=== PATIENT | female | born 1930 | race Caucasian/White ===

== ENCOUNTER 2017-02-09 18:59 | Observation (INO) ==
--- OUTSIDE RECORDS SUMMARY | 2017-02-09 19:21 | External Medical Summary | Referral Summary ---
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 Discharge Diagnosis: Syncope Discharge Diagnosis: Sinus node dysfunction Discharge Disposition: 01-Home or Self Care Attending Physician: Indiana Walker MD Admitting Physician: Indiana Walker MD Vital Signs Most recent to oldest [Reference Range]: 1 Peripheral Pulse Rate [60-100 bpm] 72 bpm (12/20/14 3:13 PM) Blood Pressure [90-140/60-90 mmHg] 170/86 mmHg *HI* (12/20/14 3:13 PM) Problem List Condition Effective Dates Status Health Status Informant Allergies(Confirmed) Active Hay fever(Confirmed) Active Benign essential hypertension Active (disorder)(Confirmed) Overactive bladder(Confirmed) Active Bladder problem(Confirmed) Active Presence of permanent cardiac Active pacemaker(Confirmed) Other atopic dermatitis and related Active conditions(Confirmed) Stress incontinence(Confirmed) Active High cholesterol(Confirmed) Active Ear infection(Confirmed) Active Insomnia(Confirmed) Active Irregular heartbeat(Confirmed) Resolved Metabolic syndrome(Confirmed) Active Overweight(Confirmed) Active Atrial fibrillation Active (disorder)(Confirmed) Atrial fibrillation(Confirmed) Resolved Pure hypercholesterolemia Active (disorder)(Confirmed) Orthostatic hypotension dysautonomic Active syndrome(Confirmed) Sinus node dysfunction(Confirmed) Active Sinus infection(Confirmed) Active Tension headache(Confirmed) Active Gait instability(Confirmed) Active Urge incontinence(Confirmed) Active Chicken pox(Confirmed) Active Allergies, Adverse Reactions, Alerts Substance Reaction Severity Status lisinopril Cough Active Medications albuterol 90 mcg/inh inhalation powder 1 puffs, Inhalation, q4hr, Cough, 0 Refill(s) Start Date: 06/06/15 Status: OrderedguaiFENesin 600 mg oral tablet, extended release 600 mg 1 tabs, Oral, Daily, prn cough, 0 Refill(s) Start Date: 06/06/15 Status: Orderedlevothyroxine 88 mcg (0.088 mg) oral tablet See Instructions, TAKE ONE TABLET BY MOUTH DAILY - LAST REFILL UNTIL SEEN., # 30 tabs, 9 Refill(s), eRx: [facility] #[id number], TAKE ONE TABLET BY MOUTH DAILY - LAST REFILL UNTIL SEEN. Start Date: 03/27/15 Status: Orderedmidodrine 5 mg oral tablet 5 mg 1 tabs, Oral, TID, 0 Refill(s) Start Date: 06/06/15 Status: OrderedMiscellaneous DME DME Item FRONT WHEELED WALKER WITH SEAT AND HAND BRAKES FOR GAIT INSTABILITY, See Instructions, # 1 Each, 0 Refill(s), Supply Start Date: 06/11/15 Status: Orderednitroglycerin 0.4 mg sublingual tablet 0.4 mg 1 tabs, SubLingual, q5min, as needed for chest pain, # 100 tabs, 0 Refill (s) Start Date: 10/17/14 Status: Orderedsotalol 80 mg oral tablet 1/2 tabs, Oral, BID, # 30 tabs, 5 Refill(s), other reason (Rx), 1 tabs Oral BID Start Date: 06/19/15 Status: OrderedVitamin D3 0 Refill(s) Start Date: 06/03/15 Status: Orderedwarfarin 2 mg oral tablet See Instructions, TAKE ONE TABLET BY MOUTH EVERY DAY, # 30 tabs, 3 Refill(s), Pharmacy: [facility] #[id number], TAKE ONE TABLET BY MOUTH EVERY DAY Start Date: 04/01/15 Status: Ordered Results No data available for this section Immunizations Vaccine Date Refusal Reason influenza virus vaccine, inactivated 02/27/15 influenza virus vaccine, live 02/22/13 influenza virus vaccine, live 02/22/12 pneumococcal 13-valent conjugate vaccine 06/29/14 pneumococcal 23-polyvalent vaccine 03/09/05 tetanus/diphtheria/pertussis, acel(Tdap) 12/26/12 Procedures Procedure Date Related Diagnosis Body Site Mammogram 07/06/14 Bone densimetry normal 08/24/13 Lumpectomy and Radiation 11/2006 Colonoscopy 01/15/05 Cataract extraction Pacemaker Tonsillectomy Social History Social History Type Response Smoking Status Never smoker Assessment and Plan Extracted from: Title: Office Visit Note Author: Indiana Walker MD Date: 12/20/14 Assessment/Plan Atrial fibrillation Ordered: Office Visit Level 3 Est 31487 Pm Device Progr Eval Dual [id number] Return to Clinic Orthostasis Presence of permanent cardiac pacemaker Ordered: Office Visit Level 3 Est 54688 Pm Device Progr Eval Dual [id number] Return to Clinic Sinus node dysfunction Syncope Dictation performed with [email or web address] voice recognition Referrals to Other Providers Referred by: Indiana Walker MD
--- OUTSIDE RECORDS SUMMARY | 2017-02-09 19:21 | External Medical Summary | Referral Summary ---
:1930 Author Organization [facility] Address [address] [place] [address] Care Team Providers Name Role Phone Luisa Thornton Primary Care Physician Encounter [facility] Date(s): 10/11/14 - 10/11/14 [facility] [address] [place] [address]- [place] Discharge Diagnosis: Sinus node dysfunction Discharge Diagnosis: LV dysfunction Discharge Diagnosis: Non-sustained ventricular tachycardia Discharge Diagnosis: Hx of amiodarone therapy Discharge Diagnosis: Presence of permanent cardiac pacemaker Discharge Diagnosis: Benign essential hypertension Discharge Diagnosis: Atrial fibrillation Discharge Disposition: 01-Home or Self Care Attending Physician: Indiana Walker MD Admitting Physician: Indiana Walker MD Referring Physician: Ca Akins MD Vital Signs Most recent to oldest [Reference Range]: 1 Peripheral Pulse Rate [60-100 bpm] 80 bpm (10/11/14 4:16 PM) Blood Pressure [90-140/60-90 mmHg] 132/76 mmHg (10/11/14 4:16 PM) Problem List Condition Effective Dates Status [...] Reaction Severity Status lisinopril Cough Active Medications levothyroxine 88 mcg (0.088 mg) oral tablet See Instructions, TAKE ONE TABLET BY MOUTH DAILY - LAST REFILL UNTIL SEEN., # 30 tabs, eRx: [facility] #[id number], TAKE ONE TABLET BY MOUTH DAILY - LAST REFILL UNTIL SEEN. Start Date: 02/25/15 Status: Orderedlevothyroxine 88 mcg (0.088 mg) oral tablet 88 mcg 1 tabs, Oral, Daily, last refill until seen you will need to set up appointment with a new doc. or Dr. Thornton, # 30 tabs, 0 Refill(s), Pharmacy: [facility] #[id number], 1 tabs Oral Daily,Instr:last refill until seen; you will need to set up ap... Start Date: 01/22/15 Status: Orderedmidodrine 5 mg oral tablet See Instructions, 2 tab oral in am and 1 tab at noon, # 90 tabs, 5 Refill(s), Pharmacy: [facility] #[id number], 2 tab oral in am and 1 tab at noon Start Date: 03/15/15 Status: OrderedMultaq 400 mg oral tablet 400 mg 1 tabs, Oral, BID, # 60 tabs, 3 Refill(s), Pharmacy: [facility] # [id number], 1 tabs Oral BID Start Date: 02/27/15 Status: Orderednitroglycerin 0.4 mg sublingual tablet 0.4 mg 1 tabs, SubLingual, q5min, as needed for chest pain, # 100 tabs, 0 Refill (s) Start Date: 10/17/14 Status: Orderedwarfarin 2 mg oral tablet See Instructions, TAKE ONE TABLET BY MOUTH EVERY DAY, # 30 tabs, 3 Refill(s), eRx: [facility] #[id number], TAKE ONE TABLET BY MOUTH EVERY DAY Start Date: 11/19/14 Status: Ordered Results No data available for this section Immunizations Vaccine Date Refusal Reason influenza virus vaccine, inactivated 02/27/15 influenza virus vaccine, live 02/22/13 influenza virus vaccine, live 02/22/12 pneumococcal 13-valent conjugate vaccine 06/29/14 pneumococcal 23-polyvalent vaccine 03/09/05 tetanus/diphtheria/pertussis, acel(Tdap) 12/26/12 Procedures Procedure Date Related Diagnosis Body Site Lumpectomy and Radiation 11/2006 Cataract extraction Colonoscopy Pacemaker Tonsillectomy Social History Social History Type Response Smoking Status Never smoker Assessment and Plan Extracted from: Title: Office Visit Note Author: Indiana Walker MD Date: 10/11/14 Assessment/Plan Atrial fibrillation Ordered: Office Visit Level 4 Est 57094 Pm Device Progr Eval Dual [id number] Return to Clinic Benign essential hypertension Hx of amiodarone therapy LV dysfunction Non-sustained ventricular tachycardia Presence of permanent cardiac pacemaker Ordered: Office Visit Level 4 Est 07714 Pm Device Progr Eval Dual [id number] Return to Clinic Sinus node dysfunction Ordered: Office Visit Level 4 Est 80858 Pm Device Progr Eval Dual [id number] Return to Clinic Dictation performed with [employer] voice recognition Referrals to Other Providers Referred by: Indiana Walker MD
[2017-02-09] MEDS ORDERED: SALINE FLUSH 10ml SYRINGE IVF PRN (19:22)
--- OUTSIDE RECORDS SUMMARY | 2017-02-09 19:22 | External Medical Summary | Referral Summary ---
:1930 Author Care Team Providers Name Role Phone PamelaCa puentes Primary Care Physician Encounter [facility] [id number] Date(s): 08/30/14 - 08/30/14 [facility], [address] [place] [id number] [place] Discharge Diagnosis: Dizziness Discharge Diagnosis: Benign essential hypertension Discharge Diagnosis: ATRIAL FIBRILLATION Discharge Diagnosis: Shortness of breath Discharge Disposition: Home or Self Care Attending Physician: Deisy Sanchez APRN Admitting Physician: Deisy Sanchez APRN Vital Signs Most recent to oldest [Reference Range]: 1 Temperature Tympanic [36.6-38.1 degC] 36.4 degC *LOW* (08/30/14 3:13 PM) Peripheral Pulse Rate [60-100 bpm] 75 bpm (08/30/14 3:13 PM) Blood Pressure [90-140/60-90 mmHg] 110/60 mmHg (08/30/14 3:13 PM) Most recent to oldest [Reference Range]: 1 SpO2 95 % (08/30/14 3:13 PM) Problem List Condition Effective Dates Status Health Status Informant Allergies(Confirmed) Active Hay fever(Confirmed) Active Atrial fibrillation Active (disorder)(Confirmed) Atrial fibrillation(Confirmed) Resolved Benign essential hypertension Active (disorder)(Confirmed) Overactive bladder(Confirmed) Active Bladder problem(Confirmed) Active Presence of permanent cardiac Active pacemaker(Confirmed) Other atopic dermatitis and related Active conditions(Confirmed) Stress incontinence(Confirmed) Active High cholesterol(Confirmed) Active Ear infection(Confirmed) Active Irregular heartbeat(Confirmed) Resolved Metabolic syndrome(Confirmed) Active Overweight(Confirmed) Active Pure hypercholesterolemia Active (disorder)(Confirmed) Sinus node dysfunction(Confirmed) Active Sinus infection(Confirmed) Active Tension headache(Confirmed) Active Urge incontinence(Confirmed) Active Chicken pox(Confirmed) Active Allergies, Adverse Reactions, Alerts Substance Reaction Severity Status lisinopril Cough Active Medications amiodarone 200 mg oral tablet See Instructions, TAKE 1.5 MG BY MOUTH 3 DAYS A WEEK AND 1 TABLET 4 DAYS A WEEK , # 45 tabs, 5 Refill(s), eRx: [facility] #[id number], TAKE 1.5 MG BY MOUTH 3 DAYS A WEEK AND 1 TABLET 4 DAYS A WEEK Special Instructions: TAKE 1.5 MG BY MOUTH 3 DAYS A WEEK AND 1 TABLET 4 DAYS A WEEK Start Date: 01/09/14 Status: Orderedlevothyroxine 88 mcg (0.088 mg) oral tablet See Instructions, TAKE ONE TABLET BY MOUTH ONCE A DAY, # 60 tabs, 3 Refill(s), eRx: [facility]#[id number], TAKE ONE TABLET BY MOUTH ONCE A DAY Special Instructions: TAKE ONE TABLET BY MOUTH ONCE A DAY Start Date: 02/19/14 Status: Orderedmeloxicam 7.5 mg oral tablet 2 tabs, Oral, Daily, as needed, 0 Refill(s) Special Instructions: as needed Start Date: 10/27/13 Status: Orderedverapamil 120 mg oral tablet See Instructions, TAKE ONE TABLET BY MOUTH TWICE A DAY, # 60 tabs, 2 Refill(s), eRx: [facility] #[id number], TAKE ONE TABLET BY MOUTH TWICE A DAY Special Instructions: TAKE ONE TABLET BY MOUTH TWICE A DAY Start Date: 06/20/14 Status: Orderedwarfarin 2 mg oral tablet See Instructions, TAKE ONE TABLET BY MOUTH EVERY DAY, # 30 tabs, 2 Refill(s), eRx: [facility] #[id number], TAKE ONE TABLET BY MOUTH EVERY DAY Special Instructions: TAKE ONE TABLET BY MOUTH EVERY DAY Start Date: 08/15/14 Status: Ordered Results Hematology Most recent to oldest [Reference Range]: 1 WBC [4.8-10.8 K/uL] 4.3 K/uL *LOW* (08/30/14 4:10 PM) RBC [4.00-5.20 M/uL] 4.02 M/uL (08/30/14 4:10 PM) Hgb [12.0-16.0 gm/dL] 12.8 gm/dL (08/30/14 4:10 PM) Hct [37.0-47.0 %] 38.7 % (08/30/14 4:10 PM) MCV [82.0-99.0 fL] 96.3 fL (08/30/14 4:10 PM) MCH [27.0-32.0 pg] 31.8 pg (08/30/14 4:10 PM) MCHC [32.0-36.0 gm/dL] 33.1 gm/dL (08/30/14 4:10 PM) RDW [11.5-14.5 %] 15.5 % *HI* (08/30/14 4:10 PM) Platelet [150-400 K/uL] 180 K/uL (08/30/14 4:10 PM) MPV [8.8-14.8 fL] 11.4 fL (08/30/14 4:10 PM) Immature Granulocytes [0.0-1.0 %] 0.2 % (08/30/14 4:10 PM) Neutrophils [51-75 %] 66 % (08/30/14 4:10 PM) Lymphocytes [20-46 %] 18 % *LOW* (08/30/14 4:10 PM) Monocytes [4-11 %] 13 % *HI* (08/30/14 4:10 PM) Eosinophils [0-4 %] 2 % (08/30/14 4:10 PM) Basophils [0-2 %] 1 % (08/30/14 4:10 PM) Neutro Absolute [1.90-7.00 THOUS] 2.85 THOUS (08/30/14 4:10 PM) Lymph Absolute [0.80-3.30 THOUS] 0.77 THOUS *LOW* (08/30/14 4:10 PM) [place] Absolute [0.30-1.00 THOUS] 0.57 THOUS (08/30/14 4:10 PM) Eos Absolute [0.00-0.50 THOUS] 0.08 THOUS (08/30/14 4:10 PM) Baso Absolute [0.00-0.20 THOUS] 0.02 THOUS (08/30/14 4:10 PM) Coagulation Most recent to oldest [Reference Range]: 1 INR [0.8-1.2] 2.2 1 *HI* (08/30/14 4:10 PM) 1Result Comment: Normal (no anticoagulant): 0.8 - 1.2 Units Routine Therapeutic Range: 2.0 - 3.0 Units High Risk Therapeutic Range: 2.5 - 3.5 UnitsChemistry Most recent to oldest [Reference Range]: 1 Sodium Lvl [135-144 mEq/L] 141 mEq/L (08/30/14 4:10 PM) Potassium Lvl [3.5-5.2 mEq/L] 4.7 mEq/L (08/30/14 4:10 PM) Chloride [99-111 mEq/L] 107 mEq/L (08/30/14 4:10 PM) CO2 [22-31 mEq/L] 27 mEq/L (08/30/14 4:10 PM) AGAP [3-20] 7 (08/30/14 4:10 PM) BUN [10-20 mg/dL] 40 mg/dL *HI* (08/30/14 4:10 PM) Glucose Lvl [70-99 mg/dL] 104 mg/dL *HI* (08/30/14 4:10 PM) Creatinine Lvl [0.57-1.11 mg/dL] 1.83 mg/dL *HI* (08/30/14 4:10 PM) eGFR [>60 mL/min] 26 mL/min 2 *ABN* (08/30/14 4:10 PM) Calcium Lvl [8.9-10.5 mg/dL] 9.3 mg/dL (08/30/14 4:10 PM) Albumin Lvl [3.4-4.8 gm/dL] 4.1 gm/dL (08/30/14 4:10 PM) Total Protein [6.2-8.1 gm/dL] 6.6 gm/dL (08/30/14 4:10 PM) Globulin [1.8-4.0 gm/dL] 2.5 gm/dL (08/30/14 4:10 PM) ALT [0-55 unit/L] 14 unit/L (08/30/14 4:10 PM) AST [5-34 unit/L] 15 unit/L (08/30/14 4:10 PM) Alk Phos [40-150 unit/L] 92 unit/L (08/30/14 4:10 PM) Bili Total [0.2-1.2 mg/dL] 0.4 mg/dL (08/30/14 4:10 PM) BNP [0-99 pg/mL] 270 pg/mL *HI* (08/30/14 4:10 PM) 2Result Comment: Multiply eGFR results by 1.21 for race. Immunizations Vaccine Date Refusal Reason influenza virus vaccine, live 02/22/13 influenza virus vaccine, live 02/22/12 pneumococcal 13-valent conjugate vaccine 06/29/14 pneumococcal 23-polyvalent vaccine 03/09/05 tetanus/diphtheria/pertussis, acel(Tdap) 12/26/12 Procedures Procedure Date Related Diagnosis Body Site Lumpectomy and Radiation 11/2006 Cataract extraction Colonoscopy Pacemaker Tonsillectomy Social History Social History Type Response Smoking Status Never smoker Assessment and Plan Extracted from: Title: Ambulatory Patient Education Author: Deisy Sanchez APRN Date: Allergy Shortness of Breath Shortness of breath means you have trouble breathing. Shortness of breath needs medical care right away. HOME CARE Do not smoke. Avoid being around chemicals or things (paint fumes, dust) that may bother your breathing. Rest as needed. Slowly begin your normal activities. Only take medicines as told by your doctor. Keep all doctor visits as told. GET HELP RIGHT AWAY IF: Your shortness of breath gets worse. You feel lightheaded, pass out (faint ), or have a cough that is not helped by medicine. You cough up blood. You have pain with breathing. You have pain in your chest, arms, shoulders, or belly (abdomen ). You have a fever. You cannot walk up stairs or exercise the way you normally do. You do not get better in the time expected. You have a hard time doing normal activities even with rest. You have problems with your medicines. You have any new symptoms. MAKE SURE YOU: Understand these instructions. Will watch your condition. Will get help right away if you are not doing well or get worse. Document Released: 10/19/2008 Document Revised: 11/01/2012 Document Reviewed: 07/18/2012 Exit[employer] Patient Information 2014 Daily [place]. No follow up information was provided. Extracted from: Title: Office Visit Note Author: Deisy Sanchez APRN Date: 08/30/14 Assessment/Plan 1.Shortness of breath Will review lab work and imaging and further plan of care. Sa02 did drop 88-89 with ambulation. RA 95% at rest. RTC in 1-2 days to review results. 2.Dizziness ATRIAL FIBRILLATION Ordered: B-Type Natriuretic Peptide CBC w/ Differential Comprehensive Metabolic Panel XR Chest 2 Views Benign essential hypertension Addendum by Deisy Sanchez APRN on 30 August 2014 d-dimer added to lab orders. 16:23:08 CDT
--- OUTSIDE RECORDS SUMMARY | 2017-02-09 19:22 | External Medical Summary | Referral Summary ---
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 Discharge Diagnosis: Atrial fibrillation (disorder) Discharge Disposition: 01-Home or Self Care Attending Physician: Luisa Thornton DO Admitting Physician: Luisa Thornton DO Vital Signs Most recent to oldest [Reference Range]: 1 Temperature Tympanic [36.6-38.1 degC] 36.9 degC (02/27/15 9:07 AM) Peripheral Pulse Rate [60-100 bpm] 93 bpm (02/27/15 9:07 AM) Respiratory Rate [14-20 br/min] 17 br/min (02/27/15 9:07 AM) Blood Pressure [90-140/60-90 mmHg] 120/64 mmHg (02/27/15 9:07 AM) SpO2 97 % (02/27/15 9:07 AM) Problem List Condition Effective Dates Status Health [...] REFILL UNTIL SEEN., # 30 tabs, eRx: [facility] #[id number], TAKE ONE TABLET BY MOUTH DAILY - LAST REFILL UNTIL SEEN. Start Date: 02/25/15 Status: Orderedlevothyroxine 88 mcg (0.088 mg) oral tablet 88 mcg 1 tabs, Oral, Daily, last refill until seen you will need to set up appointment with a new doc. or Dr. Thornton, # 30 tabs, 0 Refill(s), Pharmacy: [facility] #[id number], 1 tabs Oral Daily,Instr:last refill until seen; you will need to set up ap... Start Date: 01/22/15 Status: Orderedmidodrine 10 mg oral tablet See Instructions, 1 tabs Oral in the morning, # 30 mg, 0 Refill(s), Pharmacy: [facility] #[id number], 1 tabs Oral in the morning Start Date: 01/17/15 Status: Orderedmidodrine 5 mg oral tablet See Instructions, 1 tab oral at noon, # 30 tabs, 0 Refill(s), Pharmacy: [facility] #[id number], 1 tab oral at noon Start Date: 02/27/15 Status: OrderedMultaq 400 mg oral tablet 400 mg 1 tabs, Oral, BID, # 60 tabs, 3 Refill(s), Pharmacy: [facility] # [id number], 1 tabs Oral BID Start Date: 02/27/15 Status: Orderednitroglycerin 0.4 mg sublingual tablet 0.4 mg 1 tabs, SubLingual, q5min, as needed for chest pain, # 100 tabs, 0 Refill (s) Start Date: 10/17/14 Status: Orderedwarfarin 2 mg oral tablet See Instructions, TAKE ONE TABLET BY MOUTH EVERY DAY, # 30 tabs, 3 Refill(s), eRx: [facility] #[id number], TAKE ONE TABLET BY MOUTH EVERY DAY Start Date: 11/19/14 Status: Ordered Results Coagulation Most recent to oldest [Reference Range]: 1 PT Venous (02/27/15 10:18 AM) INR [0.8-1.2] 1.9 1 *HI* (02/27/15 10:18 AM) 1Result Comment: Normal (no anticoagulant): 0.8 - 1.2 Units Routine Therapeutic Range: 2.0 - 3.0 Units High Risk Therapeutic Range: 2.5 - 3.5 Units Immunizations Vaccine Date Refusal Reason influenza virus [...] Extracted from: Title: Office Visit Note Author: Luisa Thornton DO Date: 02/27/15 Assessment/Plan Atrial fibrillation (disorder) Discuss with cardiology next month. Ordered: Office Visit Level 4 Est 41385 Gait instability Will get her physical therapy. Ordered: Office Visit Level 4 Est 02957 Immunization due Flu shot today. Insomnia Discussed camomile tea, small dose of melatonin, and small dose of Benadryl if she is extremely cautious with this and only if absolutely necessary. Ordered: Office Visit Level 4 Est 80270 Orthostatic hypotension dysautonomic syndrome Due to side effects, we will decrease Midrin by holding the afternoon dose. Patient will now take 10 in the morning and 5 at lunch time and we will se e how this affects both her orthostasis and night time adverse effects. Patient is to return to clinic in July when the weather gets better, and to call us in about a month with an update on how she is doing. She is to keep appointment with cardiology. Ordered: Office Visit Level 4 Est 32055
--- OUTSIDE RECORDS SUMMARY | 2017-02-09 19:22 | External Medical Summary | Referral Summary ---
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 Discharge Diagnosis: Atrial fibrillation (disorder) Discharge Disposition: 01-Home or Self Care Attending Physician: Luisa Thornton DO Admitting Physician: Luisa Thornton DO Vital Signs Most recent to oldest [Reference Range]: 1 Temperature Tympanic [36.6-38.1 degC] 36.9 degC (01/30/15 10:15 AM) Peripheral Pulse Rate [60-100 bpm] 60 bpm (01/30/15 10:15 AM) Respiratory Rate [14-20 br/min] 17 br/min (01/30/15 10:15 AM) Blood Pressure [90-140/60-90 mmHg] 128/60 mmHg (01/30/15 10:15 AM) SpO2 97 % (01/30/15 10:15 AM) Problem List Condition Effective Dates Status [...] SEEN., # 30 tabs, 9 Refill(s), eRx: [facility] #[id number], TAKE ONE TABLET BY MOUTH DAILY - LAST REFILL UNTIL SEEN. Start Date: 03/27/15 Status: Orderedmidodrine 10 mg oral tablet 10 mg 1 tabs, Oral, TID, # 90 tabs, 0 Refill(s), other reason (Rx) Start Date: 08/05/15 Status: OrderedMiscellaneous DME DME Item FRONT WHEELED [...] DAY, # 30 tabs, 3 Refill(s), Pharmacy: [facility] #[id number], TAKE ONE TABLET BY MOUTH EVERY DAY Start Date: 07/05/15 Status: Ordered Results No data available for [...] Extracted from: Title: Ambulatory Patient Education Author: Luisa Thornton DO Date: 01/30/15 Family Medicine Atrial Fibrillation Atrial fibrillation is a type of irregular heart rhythm (arrhythmia). During atrial fibrillation, the upper chambers of the heart (atria) quiver continuously in a chaotic pattern. This causes an irregular and often rapid heart rate. Atrial fibrillation is the result of the heart becoming overloaded with disorganized signals that tell it to beat. These signals are normally released one at a time by a part of the right atrium called the sinoatrial node. They then travel from the atria to the lower chambers of the heart (ventricles), causing the atria and ventricles to contract and pump blood as they pass. In atrial fibrillation, pa rts of the atria outside of the sinoatrial node also release these signals. This results in two problems. First, the atria receive so many signals that they do not have time to fully contract. Second, t he ventricles, which can only receive one signal at a time, beat irregularly and out of rhythm with the atria. There are three types of atrial fibrillation: Paroxysmal. Paroxysmal atrial fibrillation starts suddenly and stops on its own within a week. Persistent. Persistent atrial fibrillation lasts for more than a week. It may stop on its own or with treatment. Permanent. Permanent atrial fibrillation does not go away. Episodes of atrial fibrillation may lead to permanent atrial fibrillation. Atrial fibrillation can prevent your heart from pumping blood normally. It increases your risk of stroke and can lead to heart failure. CAUSES Heart conditions, including a heart attack, heart failure, coronary artery disease, and heart valve conditions. Inflammation of the sac that surrounds the heart (pericarditis). Blockage of an artery in the lungs (pulmonary embolism). Pneumonia or other infections. Chronic lung disease. Thyroid problems, especially if the thyroid is overactive (hyperthyroidism ). Caffeine, excessive alcohol use, and use of some illegal drugs. Use of some medicines, including certain decongestants and diet pills. Heart surgery. defects. Sometimes, no cause can be found. When this happens, the atrial fibrillation is called lone atrial fibrillation. The risk of complications from atrial fibrillation increases if you have lone atrial fibrillation and you are age 60 years or older. RISK FACTORS Heart failure. Coronary artery disease. Diabetes mellitus. High blood pressure (hypertension). Obesity. Other arrhythmias. Increased age. SIGNS AND SYMPTOMS A feeling that your heart is beating rapidly or irregularly. A feeling of discomfort or pain in your chest. Shortness of breath. Sudden light-headedness or weakness. Getting tired easily when exercising. Urinating more often than normal (mainly when atrial fibrillation first begins). In paroxysmal atrial fibrillation, symptoms may start and suddenly stop. DIAGNOSIS Your health care provider may be able to detect atrial fibrillation when taking your pulse. Your health care provider may have you take a test called an ambulatory electrocardiogram (ECG). An ECG record s your heartbeat patterns over a 24-hour period. You may also have other tests , such as: Transthoracic echocardiogram (TTE). During echocardiography, sound waves are used to evaluate how blood flows through your heart. Transesophageal echocardiogram (DAVID). Stress test. There is more than one type of stress test. If a stress test is needed, ask your health care provider about which type is best for you. Chest X-ray exam. Blood tests. Computed tomography (CT). TREATMENT Treatment may include: Treating any underlying conditions. For example, if you have an overactive thyroid, treating the condition may correct atrial fibrillation. Taking medicine. Medicines may be given to control a rapid heart rate or to prevent blood clots, heart failure, or a stroke. Having a procedure to correct the rhythm of the heart: Electrical cardioversion. During electrical cardioversion, a controlled, low-energy shock is delivered to the heart through your skin. If you have chest pain, very low blood pressure, or sudden hea rt failure, this procedure may need to be done as an emergency. Catheter ablation. During this procedure, heart tissues that send the signals that cause atrial fibrillation are destroyed. Surgical ablation. During this surgery, thin lines of heart tissue that carry the abnormal signals are destroyed. This procedure can either be an open- heart surgery or a minimally invasive surgery. With the minimally invasive surgery, small cuts are made to access the heart instead of a large opening. Pulmonary venous isolation. During this surgery, tissue around the veins that carry blood from the lungs (pulmonary veins) is destroyed. This tissue is thought to carry the abnormal signals. HOME CARE INSTRUCTIONS Take medicines only as directed by your health care provider. Some medicines can make atrial fibrillation worse or recur. If blood thinners were prescribed by your health care provider, take them exactly as directed. Too much blood-thinning medicine can cause bleeding. If you take too little, you will not have the nee ded protection against stroke and other problems. Perform blood tests at home if directed by your health care provider. Perform blood tests exactly as directed. Quit smoking if you smoke. Do not drink alcohol. Do not drink caffeinated beverages such as coffee, soda, and some teas. You may drink decaffeinated coffee, soda, or tea. Maintain a healthy weight.Do not use diet pills unless your health care provider approves. They may make heart problems worse. Follow diet instructions as directed by your health care provider. Exercise regularly as directed by your health care provider. Keep all follow-up visits as directed by your health care provider. This is important. PREVENTION The following substances can cause atrial fibrillation to recur: Caffeinated beverages. Alcohol. Certain medicines, especially those used for breathing problems. Certain herbs and herbal medicines, such as those containing ephedra or ginseng. Illegal drugs, such as cocaine and amphetamines. Sometimes medicines are given to prevent atrial fibrillation from recurring. Proper treatment of any underlying condition is also important in helping prevent recurrence. SEEK MEDICAL CARE IF: You notice a change in the rate, rhythm, or strength of your heartbeat. You suddenly begin urinating more frequently. You tire more easily when exerting yourself or exercising. SEEK IMMEDIATE MEDICAL CARE IF: You have chest pain, abdominal pain, sweating, or weakness. You feel nauseous. You have shortness of breath. You suddenly have swollen feet and ankles. You feel dizzy. Your face or limbs feel numb or weak. You have a change in your vision or speech. MAKE SURE YOU: Understand these instructions. Will watch your condition. Will get help right away if you are not doing well or get worse. Document Released: 05/03/2006 Document Revised: 09/17/2014 Document Reviewed: 06/13/2013 ExitCare Patient Information 2015 [employer]. This information is not intended to replace advice given to you by your health care provider. Make sure you discuss any questions you have with your health care provider. No follow up information was provided. Extracted from: Title: Office Visit Note Author: Luisa Thornton DO Date: 01/30/15 Assessment/Plan Atrial fibrillation (disorder) discuss medication with cardiology. Her heart rate is too low today and her BP continues to be too low for me to restart any medication. Ordered: Office Visit Level 3 Est 43014 Orthostatic hypotension dysautonomic syndrome continue midodrine at current dose, Cardiac rehab if she qualifies. Ordered: Office Visit Level 3 Est 94266
--- OUTSIDE RECORDS SUMMARY | 2017-02-09 19:22 | External Medical Summary | Referral Summary ---
:1930 Author Organization [facility] Address [address] [place] [address] Care Team Providers Name Role Phone Luisa Thornton Primary Care Physician Encounter [facility] Date(s): 10/11/14 - 10/11/14 [facility] [address] [place] [address]- [place] Discharge Diagnosis: Sinus node [...] REFILL UNTIL SEEN., # 30 tabs, eRx: [facility] #[id number], TAKE ONE TABLET BY MOUTH DAILY - LAST REFILL UNTIL SEEN. Start Date: 02/25/15 Status: Orderedlevothyroxine 88 mcg (0.088 mg) oral tablet 88 mcg 1 tabs, Oral, Daily, last refill until seen you will need to set up appointment with a new doc. or Dr. Thornton, # 30 tabs, 0 Refill(s), Pharmacy: [facility] #[id number], 1 tabs Oral Daily,Instr:last refill until seen; you will need to set up ap... Start Date: 01/22/15 Status: Orderedmidodrine 5 mg oral tablet See Instructions, 2 tab oral in am and 1 tab at noon, # 90 tabs, 5 Refill(s), Pharmacy: [facility] #[id number], 2 tab oral in am and 1 tab at noon Start Date: 03/15/15 Status: OrderedMultaq 400 mg oral tablet 400 mg 1 tabs, Oral, BID, # 60 tabs, 3 Refill(s), Pharmacy: [facility] # [id number], 1 tabs Oral BID Start Date: 02/27/15 Status: Orderednitroglycerin 0.4 mg sublingual tablet 0.4 mg 1 tabs, SubLingual, q5min, as needed for chest pain, # 100 tabs, 0 Refill (s) Start Date: 10/17/14 Status: Orderedwarfarin 2 mg oral tablet See Instructions, TAKE ONE TABLET BY MOUTH EVERY DAY, # 30 tabs, 3 Refill(s), eRx: [facility] #[id number], TAKE ONE TABLET BY MOUTH EVERY DAY [...] fibrillation Ordered: Office Visit Level 4 Est 23137 Pm Device Progr Eval Dual 05193 Return to Clinic Benign essential hypertension Hx of amiodarone therapy LV dysfunction Non-sustained ventricular tachycardia Presence of permanent cardiac pacemaker Ordered: Office Visit Level 4 Est 85629 Pm Device Progr Eval Dual 01047 Return to Clinic Sinus node dysfunction Ordered: Office Visit Level 4 Est 16759 Pm Device Progr Eval Dual 32663 Return to Clinic Dictation performed with [employer] voice recognition Referrals to Other Providers Referred by: Indiana Walker MD
--- OUTSIDE RECORDS SUMMARY | 2017-02-09 19:22 | External Medical Summary | Referral Summary ---
:1930 Author Organization [facility] Address [address] [place] [address] Care Team Providers Name Role Phone Luisa Thornton Primary Care Physician Encounter [facility] Date(s): 10/11/14 - 10/11/14 [facility] [address] [place] [address] [place] Discharge Diagnosis: Sinus node [...] REFILL UNTIL SEEN., # 30 tabs, eRx: [facility] #[id number], TAKE ONE TABLET BY MOUTH DAILY - LAST REFILL UNTIL SEEN. Start Date: 02/25/15 Status: Orderedlevothyroxine 88 mcg (0.088 mg) oral tablet 88 mcg 1 tabs, Oral, Daily, last refill until seen you will need to set up appointment with a new doc. or Dr. Thornton, # 30 tabs, 0 Refill(s), Pharmacy: [facility] #[id number], 1 tabs Oral Daily,Instr:last refill until seen; you will need to set up ap... Start Date: 01/22/15 Status: Orderedmidodrine 5 mg oral tablet See Instructions, 2 tab oral in am and 1 tab at noon, # 90 tabs, 5 Refill(s), Pharmacy: [facility] #[id number], 2 tab oral in am and 1 tab at noon Start Date: 03/15/15 Status: OrderedMultaq 400 mg oral tablet 400 mg 1 tabs, Oral, BID, # 60 tabs, 3 Refill(s), Pharmacy: [facility] # [id number], 1 tabs Oral BID Start Date: 02/27/15 Status: Orderednitroglycerin 0.4 mg sublingual tablet 0.4 mg 1 tabs, SubLingual, q5min, as needed for chest pain, # 100 tabs, 0 Refill (s) Start Date: 10/17/14 Status: Orderedwarfarin 2 mg oral tablet See Instructions, TAKE ONE TABLET BY MOUTH EVERY DAY, # 30 tabs, 3 Refill(s), eRx: [facility] #[id number], TAKE ONE TABLET BY MOUTH EVERY DAY [...] fibrillation Ordered: Office Visit Level 4 Est 36994 Pm Device Progr Eval Dual 53780 Return to Clinic Benign essential hypertension Hx of amiodarone therapy LV dysfunction Non-sustained ventricular tachycardia Presence of permanent cardiac pacemaker Ordered: Office Visit Level 4 Est 30120 Pm Device Progr Eval Dual 26165 Return to Clinic Sinus node dysfunction Ordered: Office Visit Level 4 Est 77882 Pm Device Progr Eval Dual 03774 Return to Clinic Dictation performed with [employer] voice recognition Referrals to Other Providers Referred by: Indiana Walker MD
--- OUTSIDE RECORDS SUMMARY | 2017-02-09 19:22 | External Medical Summary | Referral Summary ---
:1930 Author Organization [facility] Address [address] [place] [address] Care Team Providers Name Role Phone Luisa Thornton Primary Care Physician Encounter [facility] [id number] Date(s): 11/15/14 - 11/15/14 [facility] [address] [place] [address] [place] Discharge Diagnosis: Presence of permanent cardiac pacemaker Discharge Diagnosis: Atrial fibrillation Discharge Diagnosis: Sinus node dysfunction Discharge Diagnosis: Left ventricular dysfunction Discharge Disposition: 01-Home or Self Care Attending Physician: Indiana Walker MD Admitting Physician: Indiana Walker MD Referring Physician: Ca Akins MD Vital Signs Most recent to oldest [Reference Range]: 1 Peripheral Pulse Rate [60-100 bpm] 80 bpm (11/15/14 12:38 PM) Blood Pressure [90-140/60-90 mmHg] 146/88 mmHg *HI* (11/15/14 12:38 PM) Problem List Condition Effective Dates Status [...] SEEN., # 30 tabs, 9 Refill(s), eRx: [facility] #[id number], TAKE ONE TABLET BY MOUTH DAILY - LAST REFILL UNTIL SEEN. Start Date: 03/27/15 Status: Orderedmidodrine 5 mg oral tablet See Instructions, 2 tab oral in am and 1 tab at noon, # 90 tabs, 5 Refill(s), Pharmacy: [facility] #[id number], 2 tab oral in am and 1 tab at noon Start Date: 03/15/15 Status: Orderednitroglycerin 0.4 mg sublingual tablet 0.4 mg 1 tabs, SubLingual, q5min, as needed for chest pain, # 100 tabs, 0 Refill (s) Start Date: 10/17/14 Status: Orderedsotalol 80 mg oral tablet 80 mg 1 tabs, Oral, BID, # 60 tabs, 5 Refill(s), Pharmacy: [facility] # [id number], 1 tabs Oral BID Start Date: 05/06/15 Status: Orderedwarfarin 2 mg oral tablet See Instructions, TAKE ONE TABLET BY MOUTH EVERY DAY, # 30 tabs, 3 Refill(s), Pharmacy: [facility] #[id number], TAKE ONE TABLET BY MOUTH EVERY DAY [...] Visit Note Author: Indiana Walker MD Date: 11/15/14 Assessment/Plan Atrial fibrillation Left ventricular dysfunction Ordered: Office Visit Level 3 Est 86660 Presence of permanent cardiac pacemaker Ordered: Office Visit Level 3 Est 82320 Pm Device Progr Eval Dual 30571 Return to Clinic Sinus node dysfunction Ordered: Office Visit Level 3 Est 96271 Pm Device Progr Eval Dual 89327 Return to Clinic Referrals to Other Providers Referred by: Indiana Walker MD
--- OUTSIDE RECORDS SUMMARY | 2017-02-09 19:22 | External Medical Summary | Referral Summary ---
:1930 [facility] [address] [place] [address] [place] [address] Care Team Providers Name Role Phone Luisa Thornton Primary Care Physician Encounter [facility] [id number] Date(s): 07/04/15 - 07/04/15 [facility] [place] [phone] [place] Discharge Diagnosis: Orthostatic hypotension dysautonomic syndrome Discharge Disposition: 01-Home or Self Care Attending Physician: Luisa Thornton DO Admitting Physician: Luisa Thornton DO Vital Signs Most recent to oldest [Reference Range]: 1 Peripheral Pulse Rate [60-100 bpm] 75 bpm (07/04/15 3:24 PM) Respiratory Rate [14-20 br/min] 18 br/min (07/04/15 3:24 PM) Blood Pressure [90-140/60-90 mmHg] 172/98 mmHg *HI* (07/04/15 3:24 PM) SpO2 98 % (07/04/15 3:24 PM) Problem List Condition Effective Dates Status [...] SEEN., # 30 tabs, 9 Refill(s), eRx: [facility] #[id number], TAKE ONE TABLET BY MOUTH DAILY - [...] DAY, # 30 tabs, 3 Refill(s), Pharmacy: [facility] #[id number], TAKE ONE TABLET BY MOUTH EVERY DAY [...] Visit Note Author: Luisa Thornton DO Date: 07/04/15 Assessment/Plan Orthostatic hypotension dysautonomic syndrome Okay to DC from senior living on current medication regimen. She should keep appointment with Dr. Ruano on return to clinic in 1 month for recheck. Ordered: Office Visit Level 3 Est 75598
--- OUTSIDE RECORDS SUMMARY | 2017-02-09 19:22 | External Medical Summary | Referral Summary ---
:1930 Author [facility] Address [address] [place] [address] [place] [address] Care Team Providers Name Role Phone Luisa Thornton Primary Care Physician Encounter [facility] Date(s): 04/08/15 - 04/08/15 [facility] [place] [phone] [place] Discharge Diagnosis: Lower back pain Discharge Disposition: 01-Home or Self Care Attending Physician: Estefany Liu APRN Admitting Physician: Estefany Liu APRN Referring Physician: Luisa Thornton DO Vital Signs Most recent to oldest [Reference Range]: 1 Temperature Tympanic [36.6-38.1 degC] 35.8 degC *LOW* (04/08/15 10:30 AM) Peripheral Pulse Rate [60-100 bpm] 78 bpm (04/08/15 10:30 AM) Blood Pressure [90-140/60-90 mmHg] 132/76 mmHg (04/08/15 10:30 AM) SpO2 98 % (04/08/15 10:30 AM) Problem List Condition Effective Dates Status [...] Refill(s), eRx: [facility] #[id number], TAKE ONE TABLET BY MOUTH DAILY - LAST REFILL UNTIL SEEN. Start Date: 03/27/15 Status: Orderedlidocaine 0.5 mg intradermal device See Instructions, Apply patch to affected site. Remove after 12 hours of wear. Wait 12 hours before reapplying new patch., # 1 Each, 0 Refill(s), Pharmacy: [facility] #[id number] Start Date: 04/08/15 Status: Orderedmidodrine 5 mg oral tablet See Instructions, 2 tab oral in am and 1 tab at noon, # 90 tabs, 5 Refill(s), Pharmacy: [facility] #[id number], 2 tab oral in am and 1 tab at noon Start Date: 03/15/15 Status: Orderednitroglycerin 0.4 mg sublingual tablet 0.4 mg 1 tabs, SubLingual, q5min, as needed for chest pain, # 100 tabs, 0 Refill (s) Start Date: 10/17/14 Status: Orderedsotalol 80 mg oral tablet 40 mg 0.5 tabs, Oral, BID, # 60 tabs, 6 Refill(s), Pharmacy: [facility] # [id number], 0.5 tabs OralBID Start Date: 03/26/15 Status: Orderedwarfarin 2 mg oral tablet See Instructions, TAKE ONE TABLET BY MOUTH EVERY DAY, # 30 tabs, 3 Refill(s), Pharmacy: [facility] #[id number], TAKE ONE TABLET BY MOUTH EVERY DAY [...] Smoking Status Never smoker Assessment and Plan No data available for this section
--- OUTSIDE RECORDS SUMMARY | 2017-02-09 19:22 | External Medical Summary | Referral Summary ---
:1930 Author Organization [facility] Address [address] [place] [address] Care Team Providers Name Role Phone Luisa Thornton Primary Care Physician Encounter [facility] Date(s): 04/15/15 - 04/15/15 [facility] [address] [place] [address]- [place] Discharge Disposition: 01-Home or Self Care Attending Physician: Indiana Walker MD Admitting Physician: Indiana Walker MD Referring Physician: Luisa Thornton DO Vital Signs No data available for this section Problem List Condition Effective Dates Status Health [...] SEEN., # 30 tabs, 9 Refill(s), eRx: [facility] #[id number], TAKE ONE TABLET BY MOUTH DAILY - LAST REFILL UNTIL SEEN. Start Date: 03/27/15 Status: Orderedmidodrine 5 mg oral tablet See Instructions, 2 tab oral in am and 1 tab at noon, # 90 tabs, 5 Refill(s), Pharmacy: [facility] #[id number], 2 tab oral in am and 1 tab at noon Start Date: 03/15/15 Status: Orderednitroglycerin 0.4 mg sublingual tablet 0.4 mg 1 tabs, SubLingual, q5min, as needed for chest pain, # 100 tabs, 0 Refill (s) Start Date: 10/17/14 Status: Orderedsotalol 80 mg oral tablet 80 mg 1 tabs, Oral, BID, # 60 tabs, 0 Refill(s), other reason (Rx) Start Date: 04/09/15 Status: Orderedwarfarin 2 mg oral tablet See Instructions, TAKE ONE TABLET BY MOUTH EVERY DAY, # 30 tabs, 3 Refill(s), Pharmacy: [facility] #[id number], TAKE ONE TABLET BY MOUTH EVERY DAY [...]
--- OUTSIDE RECORDS SUMMARY | 2017-02-09 19:22 | External Medical Summary | Referral Summary ---
:1930 Author [facility] Address [address] [place] [address] [place] [address] Care Team Providers Name Role Phone Luisa Thornton Primary Care Physician Encounter [facility] Date(s): 10/18/15 - 10/18/15 [facility] [place] [phone] [place] Discharge Diagnosis: Orthostatic hypotension dysautonomic syndrome Discharge Disposition: 01-Home or Self Care Attending Physician: Luisa Thornton DO Admitting Physician: Luisa Thornton DO Vital Signs Most recent to oldest [Reference Range]: 1 Peripheral Pulse Rate [60-100 bpm] 83 bpm (10/18/15 2:29 PM) Respiratory Rate [14-20 br/min] 18 br/min (10/18/15 2:29 PM) Blood Pressure [90-140/60-90 mmHg] 172/102 mmHg *HI* (10/18/15 2:29 PM) SpO2 98 % (10/18/15 2:29 PM) Problem List Condition Effective Dates Status [...] # 30 tabs, 9 Refill(s), eRx: [facility] #[id number], TAKE ONE TABLET BY MOUTH DAILY - [...] 0 Refill(s) Start Date: 06/03/15 Status: Orderedwarfarin 2.5 mg oral tablet See Instructions, TAKE 1 TABLET ON WEDNESDAY, WEDNESDAY AND WEDNESDAY, # 13 tabs, 5 Refill(s), eRx: [facility] #[id number], TAKE 1 TABLET ON WEDNESDAY, WEDNESDAY AND WEDNESDAY Start Date: 10/16/15 Status: Ordered Results No data available for [...] Visit Note Author: Luisa Thornton DO Date: 10/18/15 Assessment/Plan Orthostatic hypotension dysautonomic syndrome This is currently not under good control and worsened recently. We discussed with the change in her salt intake since moving to assisted living could be part of the cause. I did discuss with her that theneurologist suggested a medication that could be triedand she would like to pursue this. Discussed with her that she should initiate this thr ough neurology and she will contact them. I also discussed that neurology recommended tryingoral B12 supplementation and wrote the order for this. Due to patient's falls and dizziness we will init iate some physical therapy. She is concerned about her blood sugar as well so we will get a fasting blood sugar at next lab draw through the correction. Return to clinic in 10 days at previously scheduled appointment for follow-up. Ordered: Office Visit Level 4 Est 74043
--- OUTSIDE RECORDS SUMMARY | 2017-02-09 19:22 | External Medical Summary | Referral Summary ---
:1930 Author [facility] Address [address] [place] [address] [place] [phone] Care Team Providers Name Role Phone Luisa Thornton Primary Care Physician Encounter [facility] Date(s): 11/21/14 - 11/21/14 [facility] [place] [phone] [place] Discharge Diagnosis: AFIB Discharge Disposition: 01-Home or Self Care Attending Physician: Myrna Chávez MD Admitting Physician: Myrna Chávez MD Vital Signs Most recent to oldest [Reference Range]: 1 Temperature Tympanic [36.6-38.1 degC] 36.5 degC *LOW* (11/21/14 1:53 PM) Peripheral Pulse Rate [60-100 bpm] 68 bpm (11/21/14 1:53 PM) Respiratory Rate [14-20 br/min] 16 br/min (11/21/14 1:53 PM) Blood Pressure [90-140/60-90 mmHg] 120/60 mmHg (11/21/14 1:53 PM) Problem List Condition Effective Dates Status [...] Reaction Severity Status lisinopril Cough Active Medications amoxicillin 500 mg oral tablet 500 mg 1 tabs, Oral, TID, X 7 days, # 21 tabs, 0 Refill(s), Pharmacy: [facility] #[id number], 1 tabs Oral TID,x7 days Start Date: 05/30/15 Stop Date: 06/06/15 Status: Orderedlevothyroxine 88 mcg (0.088 mg) oral tablet See Instructions, TAKE ONE TABLET BY MOUTH DAILY - LAST REFILL UNTIL SEEN., # 30 tabs, 9 Refill(s), eRx: [facility] #[id number], TAKE ONE TABLET BY MOUTH DAILY - LAST REFILL UNTIL SEEN. Start Date: 03/27/15 Status: Orderedmidodrine 5 mg oral tablet See Instructions, 2 tab oral in am and 1 tab at noon, # 90 tabs, 5 Refill(s), Pharmacy: [facility] #[id number], 2 tab oral in am and 1 tab at noon Start Date: 03/15/15 Status: Orderednitroglycerin 0.4 mg sublingual tablet 0.4 mg 1 tabs, SubLingual, q5min, as needed for chest pain, # 100 tabs, 0 Refill (s) Start Date: 10/17/14 Status: Orderedsotalol 80 mg oral tablet 80 mg 1 tabs, Oral, BID, # 60 tabs, 5 Refill(s), Pharmacy: [facility] # [id number], 1 tabs Oral BID Start Date: 05/06/15 Status: Orderedwarfarin 2 mg oral tablet See Instructions, TAKE ONE TABLET BY MOUTH EVERY DAY, # 30 tabs, 3 Refill(s), Pharmacy: [facility] #[id number], TAKE ONE TABLET BY MOUTH EVERY DAY [...] Extracted from: Title: Office Visit Note Author: Myrna Chávez MD Date: 11/21/14 Assessment/Plan AFIB Follow-up for her atrial fibrillation or any other arrhythmia will be done by Dr. Walker, with him she has a scheduled appointment for the result of her Holter monitor. Ordered: Office Visit Level 3 Est 66593 Dizziness. Etiology is still being worked up but it appears it may be related to orthostatic hypotension. If any further concerns are expressed by the eye doctor, we will call and notify her if she needs any further workup. Ordered: Office Visit Level 3 Est 45023 Orthostatic hypotension She will continue at her current dose of lisinopril , 2.5 mg daily and follow her blood pressure, especially when she feels dizzy. She was carefully instructed to get up very slowly and stand for bit before walking. If she does feel dizzy sit down immediately. I have advised her to use the walker that she has at home to provide additional stability. I would like her to use it at all times rather than the cane that she is currently walking with here in the office. Ordered: Office Visit Level 3 Est 29243
--- OUTSIDE RECORDS SUMMARY | 2017-02-09 19:22 | External Medical Summary | Referral Summary ---
:1930 Author Organization [facility] Address [address] [place] [address] [place] [phone] Care Team Providers Name Role Phone Luisa Thornton Primary Care Physician Encounter VC [facility] [id number] Date(s): 02/27/15 - 02/27/15 [facility] [place] [phone] [place] Discharge Diagnosis: [...] SEEN., # 30 tabs, 9 Refill(s), eRx: [facility] #[id number], TAKE ONE TABLET BY MOUTH DAILY - [...] DAY, # 30 tabs, 3 Refill(s), Pharmacy: [facility] #[id number], TAKE ONE TABLET BY MOUTH EVERY DAY Start Date: 07/05/15 Status: Ordered Results Coagulation Most recent to [...] month. Ordered: Office Visit Level 4 Est 84769 Gait instability Will get her physical therapy. Ordered: Office Visit Level 4 Est 27029 Immunization due Flu shot today. Insomnia Discussed camomile tea, small dose of melatonin, and small dose of Benadryl if she is extremely cautious with this and only if absolutely necessary. Ordered: Office Visit Level 4 Est 07221 Orthostatic hypotension dysautonomic syndrome Due to side [...] cardiology. Ordered: Office Visit Level 4 Est 86527
--- OUTSIDE RECORDS SUMMARY | 2017-02-09 19:23 | External Medical Summary | Referral Summary ---
:1930 Author Organization [facility] Address [address] [place] [address] Care Team Providers Name Role Phone Luisa Thornton Primary Care Physician Encounter VC [facility] [id number] Date(s): 11/12/14 - 11/12/14 [facility] [address] [place] [address] [place] Discharge Disposition: 01-Home or Self Care Attending Physician: Indiana Walker MD Admitting Physician: Indiana Walker MD Referring Physician: Ca Akins MD Vital Signs No data available for this [...] SEEN., # 30 tabs, 9 Refill(s), eRx: [facility] #[id number], TAKE ONE TABLET BY MOUTH DAILY - LAST REFILL UNTIL SEEN. Start Date: 03/27/15 Status: Orderedmidodrine 5 mg oral tablet See Instructions, 2 tab oral in am and 1 tab at noon, # 90 tabs, 5 Refill(s), Pharmacy: [facility] #[id number], 2 tab oral in am and 1 tab at noon Start Date: 03/15/15 Status: Orderednitroglycerin 0.4 mg sublingual tablet 0.4 mg 1 tabs, SubLingual, q5min, as needed for chest pain, # 100 tabs, 0 Refill (s) Start Date: 10/17/14 Status: Orderedsotalol 80 mg oral tablet 80 mg 1 tabs, Oral, BID, # 60 tabs, 5 Refill(s), Pharmacy: [facility] # [id number], 1 tabs Oral BID Start Date: 05/06/15 Status: Orderedwarfarin 2 mg oral tablet See Instructions, TAKE ONE TABLET BY MOUTH EVERY DAY, # 30 tabs, 3 Refill(s), Pharmacy: [facility] #[id number], TAKE ONE TABLET BY MOUTH EVERY DAY [...]
--- OUTSIDE RECORDS SUMMARY | 2017-02-09 19:23 | External Medical Summary | Referral Summary ---
:1930 Author Organization [facility] Address [address] [place] [address] Care Team Providers Name Role Phone Luisa Thornton Primary Care Physician Encounter [facility] Date(s): 03/26/15 - 03/26/15 [facility] [address] [place] [address] [place] Discharge Diagnosis: Orthostatic hypotension dysautonomic syndrome Discharge Diagnosis: Orthostasis Discharge Diagnosis: Paroxysmal atrial fibrillation Discharge Diagnosis: Presence of permanent cardiac pacemaker Discharge Diagnosis: Sinus node dysfunction Discharge Disposition: 01-Home or Self Care Attending Physician: Indiana Walker MD Admitting Physician: Indiana Walker MD Referring Physician: Ca Akins MD Vital Signs Most recent to oldest [Reference Range]: 1 Peripheral Pulse Rate [60-100 bpm] 80 bpm (03/26/15 2:01 PM) Blood Pressure [90-140/60-90 mmHg] 120/60 mmHg (03/26/15 2:01 PM) Problem List Condition Effective Dates Status [...] REFILL UNTIL SEEN., # 30 tabs, eRx: [facility] #[id number], TAKE ONE TABLET BY MOUTH DAILY - LAST REFILL UNTIL SEEN. Start Date: 02/25/15 Status: Orderedmidodrine 5 mg oral tablet See Instructions, 2 tab oral in am and 1 tab at noon, # 90 tabs, 5 Refill(s), Pharmacy: [facility] #[id number], 2 tab oral in am and 1 tab at noon Start Date: 03/15/15 Status: Orderednitroglycerin 0.4 mg sublingual tablet 0.4 mg 1 tabs, SubLingual, q5min, as needed for chest pain, # 100 tabs, 0 Refill (s) Start Date: 10/17/14 Status: Orderedsotalol 80 mg oral tablet 40 mg 0.5 tabs, Oral, BID, # 60 tabs, 6 Refill(s), Pharmacy: [facility] # [id number], 0.5 tabs OralBID Start Date: 03/26/15 Status: Orderedwarfarin 2 mg oral tablet See Instructions, TAKE ONE TABLET BY MOUTH EVERY DAY, # 30 tabs, 3 Refill(s), eRx: [facility] #[id number], TAKE ONE TABLET BY MOUTH EVERY DAY [...] Visit Note Author: Indiana Walker MD Date: 03/26/15 Assessment/Plan Orthostasis Orthostatic hypotension dysautonomic syndrome Paroxysmal atrial fibrillation Ordered: Request for Cardiovascular ECG Presence of permanent cardiac pacemaker Ordered: Office Visit Level 3 Est 40860 Return to Clinic Sinus node dysfunction Orders: sotalol, 40 mg 0.5 tabs, Oral, BID, # 60 tabs, 6 Refill(s), Pharmacy : [facility] #[id number], 0.5 tabs Oral BID Referrals to Other Providers Referred by: Indiana Walker MD
--- OUTSIDE RECORDS SUMMARY | 2017-02-09 19:23 | External Medical Summary | Referral Summary ---
:1930 Author [facility] Address [address] [place] [address] [place] [address] Care Team Providers Name Role Phone Luisa Thornton Primary Care Physician Encounter [facility] Date(s): 06/03/15 - 06/03/15 [facility] [place] [phone] [place] Discharge Disposition: 01-Home or Self Care Attending Physician: Matthew Stevenson MD Admitting Physician: Matthew Stevenson MD Vital Signs Most recent to oldest [Reference Range]: 1 Temperature Tympanic [36.6-38.1 degC] 36.5 degC *LOW* (06/03/15 4:34 PM) Peripheral Pulse Rate [60-100 bpm] 75 bpm (06/03/15 4:34 PM) Blood Pressure [90-140/60-90 mmHg] 158/90 mmHg *HI* (06/03/15 4:34 PM) SpO2 97 % (06/03/15 4:34 PM) Problem List Condition Effective Dates Status [...] days, # 21 tabs, 0 Refill(s), Pharmacy: [facility] #[id number], 1 tabs Oral TID,x7 days Start Date: 05/30/15 Stop Date: 06/06/15 Status: Orderedlevothyroxine 88 mcg (0.088 mg) oral tablet See Instructions, TAKE ONE TABLET BY MOUTH DAILY - LAST REFILL UNTIL SEEN., # 30 tabs, 9 Refill(s), eRx: [facility] #[id number], TAKE ONE TABLET BY MOUTH DAILY - LAST REFILL UNTIL SEEN. Start Date: 03/27/15 Status: Orderedmidodrine 5 mg oral tablet See Instructions, 2 tab oral in am and 1 tab at noon, # 90 tabs, 5 Refill(s), Pharmacy: [facility] #[id number], 2 tab oral in am and 1 tab at noon Start Date: 03/15/15 Status: Orderednitroglycerin 0.4 mg sublingual tablet 0.4 mg 1 tabs, SubLingual, q5min, as needed for chest pain, # 100 tabs, 0 Refill (s) Start Date: 10/17/14 Status: OrderedpredniSONE 20 mg oral tablet 20 mg 1 tabs, Oral, Daily, X 5 days, # 5 tabs, 0 Refill(s), Pharmacy: [facility] #[id number], 1 tabs Oral Daily,x5 days Start Date: 06/03/15 Stop Date: 06/08/15 Status: Orderedsotalol 80 mg oral tablet 80 mg 1 tabs, Oral, BID, # 60 tabs, 5 Refill(s), Pharmacy: [facility] # [id number], 1 tabs Oral BID Start Date: 05/06/15 Status: OrderedVitamin D3 0 Refill(s) Start Date: 06/03/15 Status: Orderedwarfarin 2 mg oral tablet See Instructions, TAKE ONE TABLET BY MOUTH EVERY DAY, # 30 tabs, 3 Refill(s), Pharmacy: [facility] #[id number], TAKE ONE TABLET BY MOUTH EVERY DAY Start Date: 04/01/15 Status: Ordered Results Coagulation Most recent to oldest [Reference Range]: 1 PT Venous (06/03/15 5:19 PM) INR [0.8-1.2] 2.0 1 *HI* (06/03/15 5:19 PM) 1Result Comment: Normal (no anticoagulant): 0.8 [...] Extracted from: Title: Ambulatory Patient Education Author: Matthew Stevenson MD Date: 06/03/15 Family Medicine Benign Positional Vertigo Vertigo means you feel like you or your surroundings are moving when they are not. Benign positional vertigo is the most common form of vertigo. Benign means that the cause of your condition is not ser ious. Benign positional vertigo is more common in older adults. CAUSES Benign positional vertigo is the result of an upset in the labyrinth system. This is an area in the middle ear that helps control your balance. This may be caused by a viral infection, head injury, or r epetitive motion. However, often no specific cause is found. SYMPTOMS Symptoms of benign positional vertigo occur when you move your head or eyes in different directions. Some of the symptoms may include: Loss of balance and falls. Vomiting. Blurred vision. Dizziness. Nausea. Involuntary eye movements (nystagmus). DIAGNOSIS Benign positional vertigo is usually diagnosed by physical exam. If the specific cause of your benign positional vertigo is unknown, your caregiver may perform imaging tests, such as magnetic resonance imaging (MRI) or computed tomography (CT). TREATMENT Your caregiver may recommend movements or procedures to correct the benign positional vertigo. Medicines such as meclizine, benzodiazepines, and medicines for nausea may be used to treat your symptoms. In rare cases, if your symptoms are caused by certain conditions that affect the inner ear, you may need surgery. HOME CARE INSTRUCTIONS Follow your caregiver's instructions. Move slowly. Do not make sudden body or head movements. Avoid driving. Avoid operating heavy machinery. Avoid performing any tasks that would be dangerous to you or others during a vertigo episode. Drink enough fluids to keep your urine clear or pale yellow. SEEK IMMEDIATE MEDICAL CARE IF: You develop problems with walking, weakness, numbness, or using your arms , hands, or legs. You have difficulty speaking. You develop severe headaches. Your nausea or vomiting continues or gets worse. You develop visual changes. Your family or friends notice any behavioral changes. Your condition gets worse. You have a fever. You develop a stiff neck or sensitivity to light. MAKE SURE YOU: Understand these instructions. Will watch your condition. Will get help right away if you are not doing well or get worse. Document Released: 02/08/2007 Document Revised: 07/25/2012 Document Reviewed: 01/21/2012 [facility] Patient Information 2015 [employer] [facility]. This information is not intended to replace advice given to you by your health care provider. Make sure you discuss any questions you have with your health care provider. No follow up information was provided. Extracted from: Title: BPPV, bronchitis Author: Matthew Stevenson MD Date: 06/03/15 Impression and Plan Diagnosis Atrial fibrillation (ZJL27-XS I48.0, Working, Medical). BPPV (benign paroxysmal positional vertigo) (EQE38-SY H81.11, Working, Medical) . Benign essential hypertension (disorder) (LMC30-XE I10, Working, Medical). Acute bronchitis (BDB78-MK J20.9, Working, Medical). 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 Plan: 1) Rola maneuvers explained to the patient and her daughter in detail. 2) PT ordered for the BPPV. 3) Take Prednisone for the wheezing. 4) Continue your other meds. 5) INR today, since you are on Amoxicillin. 6) Followup as needed.. Orders Orders (Selected) Outpatient Orders Ordered INR (PT): Office Visit Level 4 Est 13809: Future (On Hold) PT/INR: Request for Therapies: Request for Therapies: Request for Therapies: Request for Therapies: Prescriptions Prescribed predniSONE 20 mg oral tablet: 20 mg=1 tabs, Oral, Daily, for 5 days, 5 tabs, 0 Refill(s). 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 Diagnosis: Atrial fibrillation Comment: Ordered: INR (PT); Blood, Stat Collect, 06/03/15 17:18:00 ZANJERO, Once, Stop date 06/03/15 17:18:00 ZANJERO, Lab Collect, Atrial fibrillation Diagnosis: BPPV (benign paroxysmal positional vertigo) Comment: Ordered: Office Visit Level 4 Est 76331; 06/03/15 17:11:00 ZANJERO, BPPV (benign paroxysmal positional vertigo) | Acute bronchitis | Benign essential hypertension (disorder) | 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 Diagnosis: Benign essential hypertension (disorder) Comment: Ordered: Office Visit Level 4 Est 78551; 06/03/15 17:11:00 ZANJERO, BPPV (benign paroxysmal positional vertigo) | Acute bronchitis | Benign essential hypertension (disorder) | 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
--- OUTSIDE RECORDS SUMMARY | 2017-02-09 19:23 | External Medical Summary | Referral Summary ---
:1930 Author Organization [facility] [place] [address] Care Team Providers Name Role Phone Luisa Thornton Primary Care Physician Encounter [facility] [id number] Date(s): 04/24/15 - 04/24/15 [facility] [place] [phone] [place] Discharge Diagnosis: Low back pain Discharge Diagnosis: High cholesterol Discharge Disposition: 01-Home or Self Care Attending Physician: Estefany Liu APRN Admitting Physician: Estefany Liu APRN Vital Signs Most recent to oldest [Reference Range]: 1 Peripheral Pulse Rate [60-100 bpm] 74 bpm (04/24/15 10:12 AM) Blood Pressure [90-140/60-90 mmHg] 134/72 mmHg (04/24/15 10:12 AM) Problem List Condition Effective Dates Status [...] Refill(s), eRx: [facility] #[id number], TAKE ONE TABLET BY MOUTH DAILY - LAST REFILL UNTIL SEEN. Start Date: 03/27/15 Status: Orderedmidodrine 5 mg oral tablet See Instructions, 2 tab oral in am and 1 tab at noon, # 90 tabs, 5 Refill(s), Pharmacy: [facility] #[id number], 2 tab oral in am and 1 [...] Refill(s), Pharmacy: [facility] #[id number], TAKE ONE TABLET BY MOUTH EVERY DAY Start Date: 04/01/15 Status: Ordered Results Coagulation Most recent to oldest [Reference Range]: 1 PT Venous (04/24/15 10:43 AM) INR [0.8-1.2] 2.5 1 *HI* (04/24/15 10:43 AM) 1Result Comment: Normal (no anticoagulant): 0.8 [...]
--- OUTSIDE RECORDS SUMMARY | 2017-02-09 19:23 | External Medical Summary | Referral Summary ---
:1930 Author [facility] Address [address] [place] [address] [place] [address] Care Team Providers Name Role Phone Luisa Thornton Primary Care Physician Encounter [facility] Date(s): 06/19/15 - 06/19/15 [facility] [place] [phone] [place] Discharge Diagnosis: Chronic orthostatic hypotension Discharge Diagnosis: BPPV (benign paroxysmal positional vertigo) Discharge Diagnosis: Constipation Discharge Disposition: 01-Home or Self Care Attending Physician: Luisa Thornton DO Admitting Physician: Luisa Thornton DO Vital Signs Most recent to oldest [Reference Range]: 1 Peripheral Pulse Rate [60-100 bpm] 73 bpm (06/19/15 9:19 AM) Respiratory Rate [14-20 br/min] 18 br/min (06/19/15 9:19 AM) Blood Pressure [90-140/60-90 mmHg] 138/68 mmHg (06/19/15 9:19 AM) SpO2 98 % (06/19/15 9:19 AM) Problem List Condition Effective Dates Status [...] # 30 tabs, 9 Refill(s), eRx: [facility] #[id number], TAKE ONE TABLET BY MOUTH DAILY - [...] # 30 tabs, 3 Refill(s), Pharmacy: [facility] #[id number], TAKE ONE TABLET BY MOUTH EVERY DAY [...] Visit Note Author: Luisa Thornton DO Date: 06/19/15 Assessment/Plan BPPV (benign paroxysmal positional vertigo) This is resolved at this time. Ordered: Office Visit Level 4 Est 04568 Chronic orthostatic hypotension This continues to be uncontrolled. Urged patient to keep appointment with Dr. Ruano to discuss the issue. Ordered: Office Visit Level 4 Est 34750 Constipation We will add MiraLAX to her correction regimen. I also did transfer orders from [facility] to [facility]. Ordered: Office Visit Level 4 Est 78958 Orders: sotalol, 1/2 tabs, Oral, BID, # 30 tabs, 5 Refill(s), other reason ( Rx), 1 tabs Oral BID
--- OUTSIDE RECORDS SUMMARY | 2017-02-09 19:23 | External Medical Summary | Referral Summary ---
:1930 Author Organization [facility], [facility] Care Address [address] [place] [address] [place] Jacome [address] Care Team Providers Name Role Phone Luisa Thornton Primary Care Physician Encounter [facility] Date(s): 06/03/15 - 06/03/15 [facility], [address] [place] [phone]- [place] Discharge Disposition: 01-Home or Self Care Attending Physician: Sachin Winn PA-C Admitting Physician: Sachin Winn PA-C Vital Signs No data available for this [...] days, # 21 tabs, 0 Refill(s), Pharmacy: [facility] #[id number], 1 tabs Oral TID,x7 days Start Date: 05/30/15 Stop Date: 06/06/15 Status: Orderedlevothyroxine 88 mcg (0.088 mg) oral tablet See Instructions, TAKE ONE TABLET BY MOUTH DAILY - LAST REFILL UNTIL SEEN., # 30 tabs, 9 Refill(s), eRx: [facility] #[id number], TAKE ONE TABLET BY MOUTH DAILY - LAST REFILL UNTIL SEEN. Start Date: 03/27/15 Status: Orderedmidodrine 5 mg oral tablet See Instructions, 2 tab oral in am and 1 tab at noon, # 90 tabs, 5 Refill(s), Pharmacy: [facility] #[id number], 2 tab oral in am and 1 tab at noon Start Date: 03/15/15 Status: Orderednitroglycerin 0.4 mg sublingual tablet 0.4 mg 1 tabs, SubLingual, q5min, as needed for chest pain, # 100 tabs, 0 Refill (s) Start Date: 10/17/14 Status: OrderedpredniSONE 20 mg oral tablet 20 mg 1 tabs, Oral, Daily, X 5 days, # 5 tabs, 0 Refill(s), Pharmacy: [facility] #[id number], 1 tabs Oral Daily,x5 days Start Date: 06/03/15 Stop Date: 06/08/15 Status: Orderedsotalol 80 mg oral tablet 80 mg 1 tabs, Oral, BID, # 60 tabs, 5 Refill(s), Pharmacy: [facility] # [id number], 1 tabs Oral BID Start Date: 05/06/15 Status: OrderedVitamin D3 0 Refill(s) Start Date: 06/03/15 Status: Orderedwarfarin 2 mg oral tablet See Instructions, TAKE ONE TABLET BY MOUTH EVERY DAY, # 30 tabs, 3 Refill(s), Pharmacy: [facility] #[id number], TAKE ONE TABLET BY MOUTH EVERY DAY [...]
--- OUTSIDE RECORDS SUMMARY | 2017-02-09 19:23 | External Medical Summary | Referral Summary ---
:1930 Author Organization [facility] Address [address] [place] [address] Care Team Providers Name Role Phone Luisa Thornton Primary Care Physician Encounter [facility] Date(s): 10/11/14 - 10/11/14 [facility], [facility] [address] [place] [address]- [place] Discharge Diagnosis: Sinus node [...] REFILL UNTIL SEEN., # 30 tabs, eRx: [facility] #[id number], TAKE ONE TABLET BY MOUTH DAILY - LAST REFILL UNTIL SEEN. Start Date: 02/25/15 Status: Orderedlevothyroxine 88 mcg (0.088 mg) oral tablet 88 mcg 1 tabs, Oral, Daily, last refill until seen you will need to set up appointment with a new doc. or Dr. Thornton, # 30 tabs, 0 Refill(s), Pharmacy: [facility] #[id number], 1 tabs Oral Daily,Instr:last refill until seen; you will need to set up ap... Start Date: 01/22/15 Status: Orderedmidodrine 5 mg oral tablet See Instructions, 2 tab oral in am and 1 tab at noon, # 90 tabs, 5 Refill(s), Pharmacy: [facility] #[id number], 2 tab oral in am and 1 tab at noon Start Date: 03/15/15 Status: OrderedMultaq 400 mg oral tablet 400 mg 1 tabs, Oral, BID, # 60 tabs, 3 Refill(s), Pharmacy: [facility] # [id number], 1 tabs Oral BID Start Date: 02/27/15 Status: Orderednitroglycerin 0.4 mg sublingual tablet 0.4 mg 1 tabs, SubLingual, q5min, as needed for chest pain, # 100 tabs, 0 Refill (s) Start Date: 10/17/14 Status: Orderedwarfarin 2 mg oral tablet See Instructions, TAKE ONE TABLET BY MOUTH EVERY DAY, # 30 tabs, 3 Refill(s), eRx: [facility] #[id number], TAKE ONE TABLET BY MOUTH EVERY DAY [...] fibrillation Ordered: Office Visit Level 4 Est 63530 Pm Device Progr Eval Dual [id number] Return to Clinic Benign essential hypertension Hx of amiodarone therapy LV dysfunction Non-sustained ventricular tachycardia Presence of permanent cardiac pacemaker Ordered: Office Visit Level 4 Est 87949 Pm Device Progr Eval Dual 53869 Return to Clinic Sinus node dysfunction Ordered: Office Visit Level 4 Est 42747 Pm Device Progr Eval Dual [id number] Return to Clinic Dictation performed with [email or web address] voice recognition Referrals to Other Providers Referred by: Indiana Walker MD
--- OUTSIDE RECORDS SUMMARY | 2017-02-09 19:23 | External Medical Summary | Referral Summary ---
:1930 Author Organization [facility] Address [address] [place] [address] [place] [address] Care Team Providers Name Role Phone Luisa Thornton Primary Care Physician Encounter [facility] [id number] Date(s): 08/05/15 - 08/05/15 [facility] [place] [phone] [place] Discharge Diagnosis: Orthostatic hypotension dysautonomic syndrome Discharge Diagnosis: Gait instability Discharge Disposition: 01-Home or Self Care Attending Physician: Luisa Thornton DO Admitting Physician: Luisa Thornton DO Vital Signs Most recent to oldest [Reference Range]: 1 Peripheral Pulse Rate [60-100 bpm] 73 bpm (08/05/15 9:23 AM) Respiratory Rate [14-20 br/min] 18 br/min (08/05/15 9:23 AM) Blood Pressure [90-140/60-90 mmHg] 128/73 mmHg (08/05/15 9:23 AM) SpO2 98 % (08/05/15 9:23 AM) Problem List Condition Effective Dates Status [...] SEEN., # 30 tabs, 9 Refill(s), eRx: [facility] #[id number], TAKE ONE TABLET BY MOUTH DAILY - [...] DAY, # 30 tabs, 3 Refill(s), Pharmacy: [facility] #[id number], TAKE ONE TABLET BY MOUTH EVERY DAY Start Date: 07/05/15 Status: Ordered Results Coagulation Most recent to oldest [Reference Range]: 1 PT Venous (08/05/15 10:36 AM) INR [0.8-1.2] 2.0 1 *HI* (08/05/15 10:36 AM) 1Result Comment: Normal (no anticoagulant): 0.8 - 1.2 Units Routine Therapeutic Range: 2.0 - 3.0 Units High Risk Therapeutic Range: 2.5 - 3.5 UnitsChemistry Most recent to oldest [Reference Range]: 1 Sodium Lvl [135-144 mEq/L] 138 mEq/L (08/05/15 10:36 AM) Potassium Lvl [3.5-5.2 mEq/L] 4.6 mEq/L (08/05/15 10:36 AM) Chloride [99-111 mEq/L] 104 mEq/L (08/05/15 10:36 AM) CO2 [22-31 mEq/L] 27 mEq/L (08/05/15 10:36 AM) AGAP [3-20] 7 (08/05/15 10:36 AM) BUN [10-20 mg/dL] 40 mg/dL *HI* (08/05/15 10:36 AM) Glucose Lvl [70-99 mg/dL] 83 mg/dL (08/05/15 10:36 AM) Creatinine Lvl [0.57-1.11 mg/dL] 1.36 mg/dL *HI* (08/05/15 10:36 AM) eGFR [>60 mL/min] 37 mL/min 1 *ABN* (08/05/15 10:36 AM) Calcium Lvl [8.9-10.5 mg/dL] 10.0 mg/dL (08/05/15 10:36 AM) 1Result Comment: Multiply eGFR results by 1.21 for [...] Title: Office Visit Note Author: Luisa Thornton Silverio DO Date: 08/05/15 Assessment/Plan Afib PT INR today. Ordered: Office Visit Level 4 Est 91317 CKD (chronic kidney disease), stage IV She is due for BMP, we will get that today. Ordered: Basic Metabolic Panel Office Visit Level 4 Est 52591 Gait instability Continue with front-wheeled walker. Ordered: Office Visit Level 4 Est 98976 Orthostatic hypotension dysautonomic syndrome Keep appointment with neurology. Return to clinic in 3 months or sooner with problems. Ordered: Office Visit Level 4 Est 71108 Orders: midodrine, 10 mg 1 tabs, Oral, TID, # 90 tabs, 0 Refill(s), other reason (Rx)
--- OUTSIDE RECORDS SUMMARY | 2017-02-09 19:23 | External Medical Summary | Referral Summary ---
:1930 Author Organization [facility] Address [address] [place] [address] Care Team Providers Name Role Phone Luisa Thornton Primary Care Physician Encounter VC [facility] [id number] Date(s): 11/20/14 - 11/20/14 [facility], [facility] [address] [place] [address]- [place] Discharge Disposition: 01-Home or Self Care Attending Physician: Ca Akins MD Admitting Physician: Ca Akins MD Vital Signs No [...] days, # 21 tabs, 0 Refill(s), Pharmacy: [facility] #[id number], 1 tabs Oral TID,x7 days Start Date: 05/30/15 Stop Date: 06/06/15 Status: Orderedlevothyroxine 88 mcg (0.088 mg) oral tablet See Instructions, TAKE ONE TABLET BY MOUTH DAILY - LAST REFILL UNTIL SEEN., # 30 tabs, 9 Refill(s), eRx: [facility] #[id number], TAKE ONE TABLET BY MOUTH DAILY - LAST REFILL UNTIL SEEN. Start Date: 03/27/15 Status: Orderedmidodrine 5 mg oral tablet See Instructions, 2 tab oral in am and 1 tab at noon, # 90 tabs, 5 Refill(s), Pharmacy: [facility] #[id number], 2 tab oral in am and 1 tab at noon Start Date: 03/15/15 Status: Orderednitroglycerin 0.4 mg sublingual tablet 0.4 mg 1 tabs, SubLingual, q5min, as needed for chest pain, # 100 tabs, 0 Refill (s) Start Date: 10/17/14 Status: Orderedsotalol 80 mg oral tablet 80 mg 1 tabs, Oral, BID, # 60 tabs, 5 Refill(s), Pharmacy: [facility] # [id number], 1 tabs Oral BID Start Date: 05/06/15 Status: Orderedwarfarin 2 mg oral tablet See Instructions, TAKE ONE TABLET BY MOUTH EVERY DAY, # 30 tabs, 3 Refill(s), Pharmacy: [facility] #[id number], TAKE ONE TABLET BY MOUTH EVERY DAY [...]
--- OUTSIDE RECORDS SUMMARY | 2017-02-09 19:23 | External Medical Summary | Referral Summary ---
:1930 Author Organization [facility] Address [address] [place] [address] Care Team Providers Name Role Phone Luisa Thornton Primary Care Physician Encounter [facility] [id number] Date(s): 12/20/14 - 12/20/14 [facility], [facility] [address] [place] [address]- [place] Discharge Diagnosis: ATRIAL FIBRILLATION Discharge Diagnosis: Left ventricular dysfunction Discharge Diagnosis: SINOATRIAL NODE DYSFUNCTION Discharge Disposition: 01-Home or Self Care Attending Physician: Indiana Walker MD Admitting Physician: Indiana Walker MD Vital Signs No data available for [...] # 30 tabs, 9 Refill(s), eRx: [facility] #[id number], TAKE ONE TABLET BY MOUTH DAILY - [...] # 30 tabs, 3 Refill(s), Pharmacy: [facility] #[id number], TAKE ONE TABLET BY MOUTH EVERY DAY [...]
--- OUTSIDE RECORDS SUMMARY | 2017-02-09 19:23 | External Medical Summary | Referral Summary ---
:1930 Author Organization [facility] Address [address] [place] [address] [place] [address] Care Team Providers Name Role Phone Luisa Thornton Primary Care Physician Encounter [facility] Date(s): 01/17/15 - 01/17/15 [facility] [place] [phone] [place] Discharge Diagnosis: Hypothyroidism Discharge Diagnosis: Orthostatic hypotension Discharge Diagnosis: Screening for hyperlipidemia Discharge Disposition: 01-Home or Self Care Attending Physician: Luisa Thornton DO Admitting Physician: Luisa Thornton DO Vital Signs Most recent to oldest [Reference Range]: 1 Temperature Tympanic [36.6-38.1 degC] 36.0 degC *LOW* (01/17/15 12:58 PM) Peripheral Pulse Rate [60-100 bpm] 77 bpm (01/17/15 12:58 PM) Respiratory Rate [14-20 br/min] 17 br/min (01/17/15 12:58 PM) Blood Pressure [90-140/60-90 mmHg] 118/60 mmHg (01/17/15 12:58 PM) SpO2 96 % (01/17/15 12:58 PM) Problem List Condition Effective Dates Status [...] # 30 tabs, 9 Refill(s), eRx: [facility] #[id number], TAKE ONE TABLET BY MOUTH DAILY - [...] # 30 tabs, 3 Refill(s), Pharmacy: [facility] #[id number], TAKE ONE TABLET BY MOUTH EVERY DAY Start Date: 07/05/15 Status: Ordered Results Hematology Most recent to oldest [Reference Range]: 1 WBC [4.8-10.8 10*3/uL] 4.8 10*3/uL (01/17/15 1:45 PM) RBC [4.00-5.20] 4.10 (01/17/15 1:45 PM) Hgb [12.0-16.0 gm/dL] 13.4 gm/dL (01/17/15 1:45 PM) Hct [37.0-47.0 %] 39.8 % (01/17/15 1:45 PM) MCV [82.0-99.0 fL] 97.1 fL (01/17/15 1:45 PM) MCH [27.0-32.0 pg] 32.7 pg *HI* (01/17/15 1:45 PM) MCHC [32.0-36.0 gm/dL] 33.7 gm/dL (01/17/15 1:45 PM) RDW [11.5-14.5 %] 15.1 % *HI* (01/17/15 1:45 PM) Platelet [150-400 10*3/uL] 187 10*3/uL (01/17/15 1:45 PM) MPV [8.8-14.8 fL] 11.8 fL (01/17/15 1:45 PM) Immature Granulocytes [0.0-1.0 %] 0.2 % (01/17/15 1:45 PM) Neutrophils [51-75 %] 70 % (01/17/15 1:45 PM) Lymphocytes [20-46 %] 17 % *LOW* (01/17/15 1:45 PM) Monocytes [4-11 %] 12 % *HI* (01/17/15 1:45 PM) Eosinophils [0-4 %] 1 % (01/17/15 1:45 PM) Basophils [0-2 %] 0 % (01/17/15 1:45 PM) Neutro Absolute [1.90-7.00 10*3] 3.34 10*3 (01/17/15 1:45 PM) Lymph Absolute [0.80-3.30 10*3] 0.80 10*3 (01/17/15 1:45 PM) [place] Absolute [0.30-1.00 10*3] 0.57 10*3 (01/17/15 1:45 PM) Eos Absolute [0.00-0.50 10*3] 0.05 10*3 (01/17/15 1:45 PM) Baso Absolute [0.00-0.20 10*3] 0.02 10*3 (01/17/15 1:45 PM) Chemistry Most recent to oldest [Reference Range]: 1 Sodium Lvl [135-144 mEq/L] 141 mEq/L (01/17/15 1:45 PM) Potassium Lvl [3.5-5.2 mEq/L] 4.7 mEq/L (01/17/15 1:45 PM) Chloride [99-111 mEq/L] 106 mEq/L (01/17/15 1:45 PM) CO2 [22-31 mEq/L] 29 mEq/L (01/17/15 1:45 PM) AGAP [3-20] 6 (01/17/15 1:45 PM) BUN [10-20 mg/dL] 34 mg/dL *HI* (01/17/15 1:45 PM) Glucose Lvl [70-99 mg/dL] 117 mg/dL *HI* (01/17/15 1:45 PM) Creatinine Lvl [0.57-1.11 mg/dL] 1.77 mg/dL *HI* (01/17/15 1:45 PM) eGFR [>60 mL/min] 27 mL/min 1 *ABN* (01/17/15 1:45 PM) Calcium Lvl [8.9-10.5 mg/dL] 9.7 mg/dL (01/17/15 1:45 PM) Albumin Lvl [3.4-4.8 gm/dL] 4.1 gm/dL (01/17/15 1:45 PM) Total Protein [6.2-8.1 gm/dL] 6.8 gm/dL (01/17/15 1:45 PM) Globulin [1.8-4.0 gm/dL] 2.7 gm/dL (01/17/15 1:45 PM) ALT [0-55 U/L] 12 U/L (01/17/15 1:45 PM) AST [5-34 U/L] 14 U/L (01/17/15 1:45 PM) Alk Phos [40-150 U/L] 80 U/L (01/17/15 1:45 PM) Bili Total [0.2-1.2 mg/dL] 0.6 mg/dL (01/17/15 1:45 PM) Chol [0-199 mg/dL] 274 mg/dL *HI* (01/17/15 1:45 PM) Trig [0-149 mg/dL] 167 mg/dL *HI* (01/17/15 1:45 PM) HDL [40-84 mg/dL] 60 mg/dL (01/17/15 1:45 PM) LDL [0-130 mg/dL] 181 mg/dL *HI* (01/17/15 1:45 PM) VLDL Cholesterol [0-28 mg/dL] 33 mg/dL *HI* (01/17/15 1:45 PM) Cardiac Risk [0.0-5.0] 4.6 (01/17/15 1:45 PM) TSH [0.35-4.94] 1.13 (01/17/15 1:45 PM) 1Result Comment: Multiply eGFR results by 1.21 [...] Visit Note Author: Luisa Thornton DO Date: 01/17/15 Assessment/Plan Hypothyroidism Patient is due for labs, Will get TSH and evaluate dosage based on Labs Ordered: Office Visit Level 4 Est 50903 Orthostatic hypotension Will increase midodrine to 10mg in am and 5 mg at noon and 4 pm and see if this improves the orthostasis. Will address therapy at next visit when we know whether this will improve the lightheaded sensation. RTC 2 weeks. Ordered: Office Visit Level 4 Est 61085 Screening for hyperlipidemia FLP due, will make changes as needed, on Zetia, tolerating well. Ordered: Office Visit Level 4 Est 30387 Orders: midodrine, See Instructions, 1 tab oral at noon and 4pm, # 60 tabs, 0 Refill(s), [facility]: [facility] #[id number], 1 tab oral at noon and 4pm midodrine, See Instructions, 1 tabs Oral in the morning, # 30 mg, 0 Refill(s) , Pharmacy: [facility] #[id number], 1 tabs Oral in the morning BD Bone Density DEXA Axial Skeleton Will discuss colonoscopy at nest visit after she discusses it with her daughter.
--- OUTSIDE RECORDS SUMMARY | 2017-02-09 19:23 | External Medical Summary | Referral Summary ---
:1930 Author Organization [facility] Address [address] [place] [address] Care Team Providers Name Role Phone Luisa Thornton Primary Care Physician Encounter [facility] [id number] Date(s): 02/11/15 - 02/11/15 [facility] [address] [place] [address]- [place] Discharge Disposition: 01-Home or [...] SEEN., # 30 tabs, 9 Refill(s), eRx: [facility] #[id number], TAKE ONE TABLET BY MOUTH DAILY - [...] DAY, # 30 tabs, 3 Refill(s), Pharmacy: [facility] #[id number], TAKE ONE TABLET BY MOUTH EVERY DAY [...]
--- OUTSIDE RECORDS SUMMARY | 2017-02-09 19:23 | External Medical Summary | Referral Summary ---
:1930 Author Organization [facility] Address [address] [place] [address] JON[place] Jacome [phone] Care Team Providers Name Role Phone Luisa Thornton Primary Care Physician Encounter [facility] [id number] Date(s): 11/13/14 - 11/13/14 [facility] [place] [phone] [place] Discharge Diagnosis: Falls frequently Discharge Diagnosis: Atrial fibrillation Discharge Diagnosis: Anticoagulated Discharge Disposition: 01-Home or Self Care Attending Physician: Ca Akins MD Admitting Physician: Ca Akins MD Vital Signs Most recent to oldest [Reference Range]: 1 Temperature Tympanic [36.6-38.1 degC] 36.1 degC *LOW* (11/13/14 2:38 PM) Problem List Condition Effective Dates Status [...] SEEN., # 30 tabs, 9 Refill(s), eRx: [facility] #[id number], TAKE ONE TABLET BY MOUTH DAILY - LAST REFILL UNTIL SEEN. Start Date: 03/27/15 Status: Orderedmidodrine 5 mg oral tablet See Instructions, 2 tab oral in am and 1 tab at noon, # 90 tabs, 5 Refill(s), Pharmacy: [facility] #[id number], 2 tab oral in am and 1 tab at noon Start Date: 03/15/15 Status: Orderednitroglycerin 0.4 mg sublingual tablet 0.4 mg 1 tabs, SubLingual, q5min, as needed for chest pain, # 100 tabs, 0 Refill (s) Start Date: 10/17/14 Status: Orderedsotalol 80 mg oral tablet 80 mg 1 tabs, Oral, BID, # 60 tabs, 5 Refill(s), Pharmacy: [facility] # [id number], 1 tabs Oral BID Start Date: 05/06/15 Status: Orderedwarfarin 2 mg oral tablet See Instructions, TAKE ONE TABLET BY MOUTH EVERY DAY, # 30 tabs, 3 Refill(s), Pharmacy: [facility] #[id number], TAKE ONE TABLET BY MOUTH EVERY DAY Start Date: 04/01/15 Status: Ordered Results Chemistry Most recent to oldest [Reference Range]: 1 Sodium Lvl [135-144 mEq/L] 141 mEq/L (11/13/14 3:50 PM) Potassium Lvl [3.5-5.2 mEq/L] 4.9 mEq/L (11/13/14 3:50 PM) Chloride [99-111 mEq/L] 107 mEq/L (11/13/14 3:50 PM) CO2 [22-31 mEq/L] 25 mEq/L (11/13/14 3:50 PM) AGAP [3-20] 9 (11/13/14 3:50 PM) BUN [10-20 mg/dL] 45 mg/dL *HI* (11/13/14 3:50 PM) Glucose Lvl [70-99 mg/dL] 85 mg/dL (11/13/14 3:50 PM) Creatinine Lvl [0.57-1.11 mg/dL] 1.72 mg/dL *HI* (11/13/14 3:50 PM) eGFR [>60 mL/min] 28 mL/min 1 *ABN* (11/13/14 3:50 PM) Calcium Lvl [8.9-10.5 mg/dL] 9.8 mg/dL (11/13/14 3:50 PM) Albumin Lvl [3.4-4.8 gm/dL] 4.3 gm/dL (11/13/14 3:50 PM) Total Protein [6.2-8.1 gm/dL] 7.1 gm/dL (11/13/14 3:50 PM) Globulin [1.8-4.0 gm/dL] 2.8 gm/dL (11/13/14 3:50 PM) ALT [0-55 U/L] 13 U/L (11/13/14 3:50 PM) AST [5-34 U/L] 17 U/L (11/13/14 3:50 PM) Alk Phos [40-150 U/L] 90 U/L (11/13/14 3:50 PM) Bili Total [0.2-1.2 mg/dL] 0.5 mg/dL (11/13/14 3:50 PM) 1Result Comment: Multiply eGFR results by 1.21 for race.Urinalysis Most recent to oldest [Reference Range]: 1 UA Color Yellow (11/13/14 4:00 PM) UA Appear Clear (11/13/14 4:00 PM) UA pH [5.0-8.0] 5.5 (11/13/14 4:00 PM) UA Leuk Est [Negative] Trace *ABN* (11/13/14 4:00 PM) UA Nitrite [Negative] Negative (11/13/14 4:00 PM) UA Protein [Negative] Pos 1+ *ABN* (11/13/14 4:00 PM) UA Glucose [Negative] Negative (11/13/14 4:00 PM) UA Ketones [Negative] Trace *ABN* (11/13/14 4:00 PM) UA Urobilinogen 0.2 mg/dL (11/13/14 4:00 PM) UA Bili [Negative] Negative (11/13/14 4:00 PM) UA Blood Negative (11/13/14 4:00 PM) UA Spec Grav [1.003-1.030] 1.020 (11/13/14 4:00 PM) Type Clean Catch (11/13/14 4:00 PM) UA WBC [0-4] 5-10 *ABN* (11/13/14 4:00 PM) Microbiology Reports TEST:Urine Culture STATUS:Auth (Verified) BODY SITE: SOURCE:Urine COLLECTED DATE/TIME:11/13/14 4:00 PMUrine CultureNormal urogenital/skin holden present Immunizations Vaccine Date Refusal Reason influenza virus [...] Extracted from: Title: Ambulatory Patient Education Author: Ca Akins MD Date: 11/14/14 Family Medicine Fall Prevention and Home Safety Falls cause injuries and can affect all age groups. It is possible to use preventive measures to significantly decrease the likelihood of falls. There are many simple measures which can make your home safer and prevent falls. OUTDOORS Repair cracks and edges of walkways and driveways. Remove high doorway thresholds. Trim shrubbery on the main path into your home. Have good outside lighting. Clear walkways of tools, rocks, debris, and clutter. Check that handrails are not broken and are securely fastened. Both sides of steps should have handrails. Have leaves, snow, and ice cleared regularly. Use sand or salt on walkways during winter months. In the garage, clean up grease or oil spills. BATHROOM Install night lights. Install grab bars by the toilet and in the tub and shower. Use non-skid mats or decals in the tub or shower. Place a plastic non-slip stool in the shower to sit on, if needed. Keep floors dry and clean up all water on the floor immediately. Remove soap buildup in the tub or shower on a regular basis. Secure bath mats with non-slip, double-sided rug tape. Remove throw rugs and tripping hazards from the floors. BEDROOMS Install night lights. Make sure a bedside light is easy to reach. Do not use oversized bedding. Keep a telephone by your bedside. Have a firm chair with side arms to use for getting dressed. Remove throw rugs and tripping hazards from the floor. KITCHEN Keep handles on pots and pans turned toward the center of the stove. Use back burners when possible. Clean up spills quickly and allow time for drying. Avoid walking on wet floors. Avoid hot utensils and knives. Position shelves so they are not too high or low. Place commonly used objects within easy reach. If necessary, use a sturdy step stool with a grab bar when reaching. Keep electrical cables out of the way. Do not use floor german or wax that makes floors slippery. If you must use wax, use non-skid floor wax. Remove throw rugs and tripping hazards from the floor. STAIRWAYS Never leave objects on stairs. Place handrails on both sides of stairways and use them. Fix any loose handrails. Make sure handrails on both sides of the stairways are as long as the stairs. Check carpeting to make sure it is firmly attached along stairs. Make repairs to worn or loose carpet promptly. Avoid placing throw rugs at the top or bottom of stairways, or properly secure the rug with carpet tape to prevent slippage. Get rid of throw rugs, if possible. Have an radio electrician put in a light switch at the top and bottom of the stairs. OTHER FALL PREVENTION TIPS Wear low-heel or rubber-soled shoes that are supportive and fit well. Wear closed toe shoes. When using a stepladder, make sure it is fully opened and both spreaders are firmly locked. Do not climb a closed stepladder. Add color or contrast paint or tape to grab bars and handrails in your home. Place contrasting color strips on first and last steps. Learn and use mobility aids as needed. Install an electrical emergency response system. Turn on lights to avoid dark areas. Replace light bulbs that burn out immediately. Get light switches that glow. Arrange furniture to create clear pathways. Keep furniture in the same place. Firmly attach carpet with non-skid or double-sided tape. Eliminate uneven floor surfaces. Select a carpet pattern that does not visually hide the edge of steps. Be aware of all pets. OTHER HOME SAFETY TIPS Set the water temperature for 120 F (48.8 C). Keep emergency numbers on or near the telephone. Keep smoke detectors on every level of the home and near sleeping areas. Document Released: 04/23/2003 Document Revised: 11/01/2012 Document Reviewed: 07/22/2012 [facility] Patient Information 2014 [employer] [facility]. No follow up information was provided. Extracted from: Title: Office Visit Note Author: Ca Akins MD Date: 11/14/14 Assessment/Plan Anticoagulated Atrial fibrillation Holter. Follow up with Dr. Palafox. Falls frequently Orders: levothyroxine, See Instructions, TAKE ONE TABLET BY MOUTH ONCE A DAY , # 60 tabs, eRx: [facility] #[id number], TAKE ONE TABLET BY MOUTH ONCE A DAY Urine Culture Extracted from: Title: Office Visit Note Author: Ca Akins MD Date: 11/14/14 Assessment/Plan Anticoagulated Atrial fibrillation Falls frequently Holter. Follow up with Dr. Palafox Orders: levothyroxine, See Instructions, TAKE ONE TABLET BY MOUTH ONCE A DAY , # 60 tabs, eRx: [facility] #[id number], TAKE ONE TABLET BY MOUTH ONCE A DAY Urine Culture
--- OUTSIDE RECORDS SUMMARY | 2017-02-09 19:23 | External Medical Summary | Referral Summary ---
:1930 Author [facility] Address [address] [place] [address] [place] Jac[place] [phone] Care Team Providers Name Role Phone Luisa Thornton Primary Care Physician Encounter [facility] [id number] Date(s): 06/11/15 - 06/11/15 [facility] [place] [phone] [place] Discharge Diagnosis: Orthostatic hypotension dysautonomic syndrome Discharge Disposition: 01-Home or Self Care Attending Physician: Reinaldo Uribe APRN Admitting Physician: Reinaldo Uribe APRN Vital Signs Most recent to oldest [Reference Range]: 1 Peripheral Pulse Rate [60-100 bpm] 77 bpm (06/11/15 1:23 PM) Respiratory Rate [14-20 br/min] 18 br/min (06/11/15 1:23 PM) Blood Pressure [90-140/60-90 mmHg] 132/78 mmHg (06/11/15 1:23 PM) SpO2 98 % (06/11/15 1:23 PM) Problem List Condition Effective Dates Status [...] SEEN., # 30 tabs, 9 Refill(s), eRx: [facility] #[id number], TAKE ONE TABLET BY MOUTH DAILY - [...] BID, # 60 tabs, 5 Refill(s), Pharmacy: [facility] # [id number], 1 tabs Oral BID Start Date: 05/06/15 Status: OrderedVitamin D3 0 Refill(s) Start Date: 06/03/15 Status: Orderedwarfarin 2 mg oral tablet See Instructions, TAKE ONE TABLET BY MOUTH EVERY DAY, # 30 tabs, 3 Refill(s), Pharmacy: [facility] #[id number], TAKE ONE TABLET BY MOUTH EVERY DAY [...] Extracted from: Title: Office Visit Note Author: Reinaldo Uribe APRN Date: 06/11/15 Assessment/Plan Orthostatic hypotension dysautonomic syndrome At this time I think we should plan a follow up with Dr Palafox to assess for appropriate blood pressure control and potentially a dose change of her mido drine. I think trying to have her seen in the next week would be appropriate. Ortho BPs in office were less profound compared to those at the ED. Reccommend an environemtn where she would have greater l evel of assistance such as a skilled rehab center. Daughter and niece are considering this at this time. Timeframe should be 30 days while we assess her dizziness and falls. PT/OT there for fall prevention and vertigo. Orders: Durable Medical Equipment Rx, DME Item FRONT WHEELED WALKER WITH SEAT AND HAND BRAKES FOR GAIT INSTABILITY, See Instructions, # 1 Each, 0 Refill( s), Supply
--- OUTSIDE RECORDS SUMMARY | 2017-02-09 19:24 | External Medical Summary | Referral Summary ---
:1930 Author Organization [facility] Address [address] [place] [address] [place] Jac[place] [phone] Care Team Providers Name Role Phone Luisa Thornton Primary Care Physician Encounter [facility] Date(s): 04/15/15 - 04/15/15 [facility] [place] [phone] [place] Discharge Disposition: 01-Home or Self Care Attending Physician: Reinaldo Uribe APRN Admitting Physician: Reinaldo Uribe APRN Vital Signs Most recent to oldest [Reference Range]: 1 Temperature Tympanic [36.6-38.1 degC] 35.9 degC *LOW* (04/15/15 2:44 PM) Peripheral Pulse Rate [60-100 bpm] 73 bpm (04/15/15 2:44 PM) Blood Pressure [90-140/60-90 mmHg] 142/96 mmHg *HI* (04/15/15 2:44 PM) SpO2 98 % (04/15/15 2:44 PM) Problem List Condition Effective Dates Status [...] 9 Refill(s), eRx: [facility] #[id number], TAKE ONE TABLET BY MOUTH DAILY - LAST REFILL UNTIL SEEN. Start Date: 03/27/15 Status: Orderedmidodrine 5 mg oral tablet See Instructions, 2 tab oral in am and 1 tab at noon, # 90 tabs, 5 Refill(s), Pharmacy: [facility] #[id number], 2 tab oral in am and 1 [...] 3 Refill(s), Pharmacy: [facility] #[id number], TAKE ONE TABLET BY MOUTH EVERY DAY [...]
--- OUTSIDE RECORDS SUMMARY | 2017-02-09 19:24 | External Medical Summary | Referral Summary ---
:1930 Author Organization [facility] Address [address] [place] [address] Care Team Providers Name Role Phone Luisa Thornton Primary Care Physician Encounter [facility] Date(s): 10/11/14 - 10/11/14 [facility] [address] [place] [address] [place] Discharge Diagnosis: Sinus node [...] REFILL UNTIL SEEN., # 30 tabs, eRx: [facility] #[id number], TAKE ONE TABLET BY MOUTH DAILY - LAST REFILL UNTIL SEEN. Start Date: 02/25/15 Status: Orderedlevothyroxine 88 mcg (0.088 mg) oral tablet 88 mcg 1 tabs, Oral, Daily, last refill until seen you will need to set up appointment with a new doc. or Dr. Thornton, # 30 tabs, 0 Refill(s), Pharmacy: [facility] #[id number], 1 tabs Oral Daily,Instr:last refill until seen; you will need to set up ap... Start Date: 01/22/15 Status: Orderedmidodrine 5 mg oral tablet See Instructions, 2 tab oral in am and 1 tab at noon, # 90 tabs, 5 Refill(s), Pharmacy: [facility] #[id number], 2 tab oral in am and 1 tab at noon Start Date: 03/15/15 Status: OrderedMultaq 400 mg oral tablet 400 mg 1 tabs, Oral, BID, # 60 tabs, 3 Refill(s), Pharmacy: [facility] # [id number], 1 tabs Oral BID Start Date: 02/27/15 Status: Orderednitroglycerin 0.4 mg sublingual tablet 0.4 mg 1 tabs, SubLingual, q5min, as needed for chest pain, # 100 tabs, 0 Refill (s) Start Date: 10/17/14 Status: Orderedwarfarin 2 mg oral tablet See Instructions, TAKE ONE TABLET BY MOUTH EVERY DAY, # 30 tabs, 3 Refill(s), eRx: [facility] #[id number], TAKE ONE TABLET BY MOUTH EVERY DAY Start Date: 11/19/14 Status: Ordered Results No data available for this section Immunizations Vaccine Date Refusal Reason influenza virus vaccine, inactivated 02/27/15 influenza virus vaccine, live 10/9/13 influenza virus vaccine, live 02/22/12 pneumococcal 13-valent [...] fibrillation Ordered: Office Visit Level 4 Est 12591 Pm Device Progr Eval Dual 22577 Return to Clinic Benign essential hypertension Hx of amiodarone therapy LV dysfunction Non-sustained ventricular tachycardia Presence of permanent cardiac pacemaker Ordered: Office Visit Level 4 Est 20205 Pm Device Progr Eval Dual 78156 Return to Clinic Sinus node dysfunction Ordered: Office Visit Level 4 Est 92834 Pm Device Progr Eval Dual [id number] Return to Clinic Dictation performed with dragon voice recognition Referrals to Other Providers Referred by: Indiana Walker MD
--- OUTSIDE RECORDS SUMMARY | 2017-02-09 19:24 | External Medical Summary | Referral Summary ---
:1930 Author [facility] Address [address] [place] [address] [place] [phone] Care Team Providers Name Role Phone Luisa Thornton Primary Care Physician Encounter [facility] Date(s): 05/30/15 - 05/30/15 [facility] [place] [phone] [place] Discharge Diagnosis: Cough Discharge Disposition: 01-Home or Self Care Attending Physician: Reinaldo Uribe APRN Admitting Physician: Reinaldo Uribe APRN Vital Signs Most recent to oldest [Reference Range]: 1 Temperature Tympanic [36.6-38.1 degC] 36.2 degC *LOW* (05/30/15 10:35 AM) Peripheral Pulse Rate [60-100 bpm] 77 bpm (05/30/15 10:35 AM) Respiratory Rate [14-20 br/min] 18 br/min (05/30/15 10:35 AM) Blood Pressure [90-140/60-90 mmHg] 138/82 mmHg (05/30/15 10:35 AM) SpO2 97 % (05/30/15 10:35 AM) Problem List Condition Effective Dates Status [...] days, # 21 tabs, 0 Refill(s), Pharmacy: [facility] #[id number], 1 tabs Oral TID,x7 days Start Date: 05/30/15 Stop Date: 06/06/15 Status: Orderedlevothyroxine 88 mcg (0.088 mg) oral tablet See Instructions, TAKE ONE TABLET BY MOUTH DAILY - LAST REFILL UNTIL SEEN., # 30 tabs, 9 Refill(s), eRx: [facility] #[id number], TAKE ONE TABLET BY MOUTH DAILY - LAST REFILL UNTIL SEEN. Start Date: 03/27/15 Status: Orderedmidodrine 5 mg oral tablet See Instructions, 2 tab oral in am and 1 tab at noon, # 90 tabs, 5 Refill(s), Pharmacy: [facility] #[id number], 2 tab oral in am and 1 tab at noon Start Date: 03/15/15 Status: Orderednitroglycerin 0.4 mg sublingual tablet 0.4 mg 1 tabs, SubLingual, q5min, as needed for chest pain, # 100 tabs, 0 Refill (s) Start Date: 10/17/14 Status: Orderedsotalol 80 mg oral tablet 80 mg 1 tabs, Oral, BID, # 60 tabs, 5 Refill(s), Pharmacy: [facility] # [id number], 1 tabs Oral BID Start Date: 05/06/15 Status: Orderedwarfarin 2 mg oral tablet See Instructions, TAKE ONE TABLET BY MOUTH EVERY DAY, # 30 tabs, 3 Refill(s), Pharmacy: [facility] #[id number], TAKE ONE TABLET BY MOUTH EVERY DAY Start Date: 04/01/15 Status: Ordered Results Coagulation Most recent to oldest [Reference Range]: 1 PT Venous (05/30/15 11:22 AM) INR [0.8-1.2] 1.7 1 *HI* (05/30/15 11:22 AM) 1Result Comment: Normal (no anticoagulant): 0.8 [...]
--- OUTSIDE RECORDS SUMMARY | 2017-02-09 19:24 | External Medical Summary | Referral Summary ---
:1930 Author Organization [facility] Address [address] [place] [address] Care Team Providers Name Role Phone Luisa Thornton Primary Care Physician Encounter [facility] Date(s): 10/11/14 - 10/11/14 [facility] [address] [place] [address] [place] Discharge Diagnosis: Sinus node [...] REFILL UNTIL SEEN., # 30 tabs, eRx: [facility] #[id number], TAKE ONE TABLET BY MOUTH DAILY - LAST REFILL UNTIL SEEN. Start Date: 02/25/15 Status: Orderedlevothyroxine 88 mcg (0.088 mg) oral tablet 88 mcg 1 tabs, Oral, Daily, last refill until seen you will need to set up appointment with a new doc. or Dr. Thornton, # 30 tabs, 0 Refill(s), Pharmacy: [facility] #[id number], 1 tabs Oral Daily,Instr:last refill until seen; you will need to set up ap... Start Date: 01/22/15 Status: Orderedmidodrine 5 mg oral tablet See Instructions, 2 tab oral in am and 1 tab at noon, # 90 tabs, 5 Refill(s), Pharmacy: [facility] #[id number], 2 tab oral in am and 1 tab at noon Start Date: 03/15/15 Status: OrderedMultaq 400 mg oral tablet 400 mg 1 tabs, Oral, BID, # 60 tabs, 3 Refill(s), Pharmacy: [facility] # [id number], 1 tabs Oral BID Start Date: 02/27/15 Status: Orderednitroglycerin 0.4 mg sublingual tablet 0.4 mg 1 tabs, SubLingual, q5min, as needed for chest pain, # 100 tabs, 0 Refill (s) Start Date: 10/17/14 Status: Orderedwarfarin 2 mg oral tablet See Instructions, TAKE ONE TABLET BY MOUTH EVERY DAY, # 30 tabs, 3 Refill(s), eRx: [facility] #[id number], TAKE ONE TABLET BY MOUTH EVERY DAY [...] fibrillation Ordered: Office Visit Level 4 Est 92468 Pm Device Progr Eval Dual 73876 Return to Clinic Benign essential hypertension Hx of amiodarone therapy LV dysfunction Non-sustained ventricular tachycardia Presence of permanent cardiac pacemaker Ordered: Office Visit Level 4 Est 94287 Pm Device Progr Eval Dual 60002 Return to Clinic Sinus node dysfunction Ordered: Office Visit Level 4 Est 97439 Pm Device Progr Eval Dual 90421 Return to Clinic Dictation performed with [employer] voice recognition Referrals to Other Providers Referred by: Indiana Walker MD
--- OUTSIDE RECORDS SUMMARY | 2017-02-09 19:24 | External Medical Summary | Continuity of Care Document ---
:1930 Author Organization Via [facility]3] Allergies Active Description Code Type Severity Reaction Onset Reported/ Identified Relationship Clinical to Patient Status Yes No Known Drug N/A N/A 07/26/2013 Drug Aller Allergies gy Medications Problems Date Dx Attending Type Code Diagnosis Diagnosed By Coded 07/26/2013 Aaron ALDANA, P Final 401.1 BENIGN Eligio HYPERTENSION 07/26/2013 Aaron ALDANA, P Final 427.31 ATRIAL Eligoi FIBRILLATION 07/26/2013 Aaron ALDANA, P Final 427.81 SINOATRIAL NODE Eligio DYSFUNCT 07/26/2013 Aaron ALDANA, P Final V53.31 ADJUST CARDIAC Eligio PACEMAKER 07/26/2013 Aaron ALDANA, P Admitting 427.31 ATRIAL Eligio FIBRILLATION Procedures Results Encounters ACCT No. Visit Discharge Status Pt. Type Provider Facility Loc./Unit Complaint Date/Time [id number] 07/26/2013 07/26/2013 DIS Outpatient Aaron Via [facility] 8 07:53:00 15:40:00 , P [facility] [id number] 08/10/2013 08/10/2013 CLS Outpatient 10:17:00 23:59:59 [id number] 07/21/2013 07/21/2013 CLS Outpatient 09:47:00 23:59:59
--- OUTSIDE RECORDS SUMMARY | 2017-02-09 19:24 | External Medical Summary | Referral Summary ---
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 Diagnosis: Adult hypothyroidism Discharge Disposition: 01-Home or Self Care Attending Physician: Luisa Thornton DO Admitting Physician: Luisa Thornton DO Vital Signs Most recent to oldest [Reference Range]: 1 Temperature Tympanic [36.6-38.1 degC] 36.9 degC (01/29/16 10:48 AM) Peripheral Pulse Rate [60-100 bpm] 87 bpm (01/29/16 10:48 AM) Respiratory Rate [14-20 br/min] 17 br/min (01/29/16 10:48 AM) Blood Pressure [90-140/60-90 mmHg] 130/84 mmHg (01/29/16 10:48 AM) SpO2 97 % (01/29/16 10:48 AM) Problem List Condition Effective Dates Status Health Status Informant AF (atrial fibrillation)(Confirmed) Active Allergies(Confirmed) Active Hay fever(Confirmed) Active Benign essential hypertension Active (disorder)(Confirmed) Overactive bladder(Confirmed) Active Bladder problem(Confirmed) Active Presence of permanent cardiac Active pacemaker(Confirmed) Other atopic dermatitis and related Active conditions(Confirmed) Stress incontinence(Confirmed) Active High cholesterol(Confirmed) Active Adult hypothyroidism(Confirmed) Active Ear infection(Confirmed) Active Insomnia(Confirmed) Active Irregular [...] Active Medications albuterol 90 mcg/inh inhalation powder 90 mcg 1 puffs, Inhalation, q4hr, Cough, # 100 Each, 4 Refill(s) Start Date: 10/24/15 Status: OrderedColace 100 mg oral capsule 100 mg 1 caps, Oral, Daily, as needed for constipation, # 30 caps, 4 Refill(s) Start Date: 10/24/15 Status: OrderedguaiFENesin 600 mg oral tablet, extended release 600 mg 1 tabs, Oral, Daily, prn cough, # 30 tabs, 4 Refill(s) Start Date: 10/24/15 Status: Orderedlevothyroxine 88 mcg (0.088 mg) oral tablet 88 mcg 1 tabs, Oral, Daily, # 30 tabs, 5 Refill(s), TAKE ONE TABLET BY MOUTH DAILY - LAST REFILL UNTIL SEEN. Start Date: 10/24/15 Status: Orderedmetoprolol tartrate 50 mg oral tablet 50 mg 1 tabs, Oral, BID, # 60 tabs, 0 Refill(s) Start Date: 01/29/16 Status: OrderedMilk of Magnesia 8% oral suspension 2.4 g 30 mL, Oral, Bedtime (once a day), as needed for constipation, # 300 mL, 4 Refill(s) Start Date: 10/24/15 Status: Orderednitroglycerin 0.4 mg sublingual tablet 0.4 mg 1 tabs, SubLingual, q5min, as needed for chest pain, # 100 tabs, 4 Refill (s) Start Date: 10/24/15 Status: OrderedVitamin B-12 1000 mcg oral tablet 1,000 mcg 1 tabs, Oral, Daily, at noon for fatigue, # 30 tabs, 0 Refill(s) Start Date: 01/08/16 Status: OrderedVitamin D3 1000 intl units oral tablet 1,000 Intl_Units 1 tabs, Oral, Daily, # 30 tabs, 4 Refill(s) Start Date: 10/24/15 Status: Orderedwarfarin 1 mg oral tablet See Instructions, TAKE THREE AND ONE-HALF TABLETS (3.5MG) BY MOUTH EVERY DAY., # 25 tabs, 4 Refill(s), eRx: [facility] #[id number], TAKE THREE AND ONE-HALF TABLETS (3.5MG) BY MOUTH EVERY DAY. Start Date: 12/16/15 Status: Ordered Results No data available for [...] Visit Note Author: Luisa Thornton DO Date: 01/29/16 Assessment/Plan Adult hypothyroidism TSH with next INR,further recommendations after results Ordered: Office Visit Level 4 Est 45206 AF (atrial fibrillation) Continue warfarin until further recommendations from head chopper. Return to clinic in 3 months. Ordered: Office Visit Level 4 Est 21313 Orthostatic hypotension dysautonomic syndrome As per Dr. Ruano. Ordered: Office Visit Level 4 Est 34960
--- OUTSIDE RECORDS SUMMARY | 2017-02-09 19:24 | External Medical Summary | Referral Summary ---
:1930 Author Organization [facility] Address [address] [place] [address] Care Team Providers Name Role Phone Luisa Thornton Primary Care Physician Encounter [facility] [phone] Date(s): 10/17/14 - 10/17/14 [facility] [address] [place] [address]- [place] Discharge Diagnosis: Decreased diffusion capacity Discharge Diagnosis: Cardiomyopathy Discharge Diagnosis: Mild mitral regurgitation Discharge Diagnosis: Physical deconditioning Discharge Diagnosis: Atrial fibrillation Discharge Diagnosis: Dyspnea on exertion Discharge Diagnosis: Systolic and diastolic CHF, chronic Discharge Disposition: 01-Home or Self Care Attending Physician: Jamal Jorgensen MD Admitting Physician: Jamal Jorgensen MD Referring Physician: Indiana Walker MD Vital Signs Most recent to oldest [Reference Range]: 1 Peripheral Pulse Rate [60-100 bpm] 76 bpm (10/17/14 3:41 PM) Respiratory Rate [14-20 br/min] 16 br/min (10/17/14 3:41 PM) Blood Pressure [90-140/60-90 mmHg] 128/75 mmHg (10/17/14 3:41 PM) SpO2 95 % (10/17/14 3:41 PM) Problem List Condition Effective Dates Status [...] 30 tabs, 9 Refill(s), eRx: [facility] #[id number], TAKE ONE TABLET BY MOUTH DAILY - LAST REFILL UNTIL SEEN. Start Date: 03/27/15 Status: Orderedmidodrine 5 mg oral tablet See Instructions, 2 tab oral in am and 1 tab at noon, # 90 tabs, 5 Refill(s), Pharmacy: [facility] #[id number], 2 tab oral in am and 1 [...] 30 tabs, 3 Refill(s), Pharmacy: [facility] #[id number], TAKE ONE TABLET BY MOUTH EVERY DAY [...]
--- OUTSIDE RECORDS SUMMARY | 2017-02-09 19:24 | External Medical Summary | Referral Summary ---
:1930 Author Organization [facility] Address [address] [place] [address] Care Team Providers Name Role Phone Luisa Thornton Primary Care Physician Encounter [facility] Date(s): 10/11/14 - 10/11/14 [facility] [address] [place] [address]- [place] Discharge Diagnosis: Sinus node [...] # 30 tabs, 9 Refill(s), eRx: [facility] #[id number], TAKE ONE TABLET BY MOUTH DAILY - LAST REFILL UNTIL SEEN. Start Date: 03/27/15 Status: Orderedmidodrine 5 mg oral tablet See Instructions, 2 tab oral in am and 1 tab at noon, # 90 tabs, 5 Refill(s), Pharmacy: [facility] #[id number], 2 tab oral in am and 1 [...] # 30 tabs, 3 Refill(s), Pharmacy: [facility] #[id number], TAKE ONE TABLET BY MOUTH EVERY DAY [...] fibrillation Ordered: Office Visit Level 4 Est 19104 Pm Device Progr Eval Dual 39634 Return to Clinic Benign essential hypertension Hx of amiodarone therapy LV dysfunction Non-sustained ventricular tachycardia Presence of permanent cardiac pacemaker Ordered: Office Visit Level 4 Est 96656 Pm Device Progr Eval Dual [id number] Return to Clinic Sinus node dysfunction Ordered: Office Visit Level 4 Est 22978 Pm Device Progr Eval Dual [id number] Return to Clinic Dictation performed with dragon voice recognition Referrals to Other Providers Referred by: Indiana Walker MD
[2017-02-09] MEDS: NS 1,000 ML IV SCH (19:53)
--- NOTE | 2017-02-09 20:04 | Emergency Department Report ---
Neuro HPI - General Chief Complaint: Neuro Symptoms/Deficit Stated Complaint: poss stroke Time Seen by Provider: 02/09/17 19:13 - History of Present Illness HPI Narrative: 86 yo female brought in by her daughter in law after having sudden onset of weakness. Pt finished dinner and was gettting into the passenger seat when she suddenly slurred speech and could not get her hands together to clasp the seat belt. She was noted to h ave right facial droop as well. Brought immediately to ED. ON entry to ED sx resolved. Pt is on coumadin, inr unknown. She has not had cva previously. Stroke protocol activated. - Related Data Home Medications: Home Medications Medication Instructions Recorded Confirmed Levothyroxine Sodium 88 mcg PO ACB #0 10/16/14 02/09/17 Cholecalciferol [Vit. D-3] 1,000 unit PO DAILY #0 01/10/16 02/09/17 Magnesium Hydroxide [Milk of 15 - 30 ml PO DAILY PRN #0 01/10/16 02/09/17 Magnesia] Nitroglycerin 0.4 mg SL Q5MIN3 PRN #0 01/10/16 02/09/17 Warfarin Sodium [Coumadin] 3 mg PO 1700 #0 01/10/16 02/09/17 Furosemide [Lasix] 10 mg PO DAILY 12/06/16 02/09/17 Docusate Sodium [Colace] 100 mg PO DAILY 02/09/17 02/09/17 Duloxetine [Cymbalta] 30 mg PO HS 02/09/17 02/09/17 Metoprolol Tartrate [Lopressor] 50 mg PO BID 02/09/17 02/09/17 Polyethylene Glycol 3350 [Miralax] 17 gm PO DAILY PRN 02/09/17 02/09/17 Previous Rx's Medication Instructions Recorded Diclofenac [Voltaren] 1 applic TOP TID #1 tube 12/06/16 Hydrocodone/APAP 5/325 [Heflin 1 tab PO Q6HPRN PRN #10 tab 12/06/16 5/325] Allergies/Adverse Reactions: Allergies Allergy/AdvReac Type Severity Reaction Status Date / Time lisinopril AdvReac Mild Verified 02/09/17 19:20 Review of Systems All systems: reviewed and negative except as stated PFSH Patient Stated Medical History Cataracts Yes Cardiac Arrhythmia Yes: afib Hypertension Yes Bronchitis Yes Substance Use Disorder No Clinic Medical History Acute bronchitis (Acute Medical) Cardiac pacemaker (Acute Medical) Dysuria (Acute Medical) Edema (Acute Medical) Heart failure (Acute Medical) Hypertension (Acute Medical) On termite exterminator drug therapy (Acute Medical) Orthostatic hypotension (Acute Medical) - Social History Smoking status: Never smoker Substance use type: does not use Alcohol intake frequency: does not drink Physical Exam - Limitations Limitations: no limitations - General General appearance: alert, in no apparent distress - Normal Exams: Head:: Normocephalic without trauma Neck:: Full range of motion, without adenopathy, JVD, bruits or thyromegaly Chest/Respirations:: Clear all marin, with good airflow, and symmetry bilaterally Cardiovascular:: Regular rate and rhythm, without murmur or gallop, Pulses 2+ all extremities, capillary refill, <2 seconds all extremities Abdomen:: Bowel sounds positive, soft, non-tender, non-distended, no hepatosplenomegaly, masses or bruits noted Musculoskeletal:: No tenderness, or deformity noted, good range of motion, all extremities Neurological:: Patient is alert, and oriented, cranial nerves, motor/sensory/ cerebellar, exams w/o gross deficits, to observation Psychiatric:: Patient exhibits, appropriate attention, emotion and affect Course Vital Signs Temperature 97.5 F 02/09/17 18:59 Pulse Rate 81 02/09/17 18:59 Respiratory Rate 24 02/09/17 18:59 Blood Pressure 168/82 H 02/09/17 18:59 Pulse Oximetry 95 02/09/17 18:59 Temperature 97.0 F 02/10/17 16:00 Pulse Rate 82 02/10/17 16:00 Respiratory Rate 16 02/10/17 16:00 Blood Pressure 140/78 H 02/10/17 16:00 Pulse Oximetry 96 02/10/17 16:00 Neuro Symptoms/Deficit - MDM Narrative Medical decision making narrative: Stroke protocol activated and Tele-stroke paged. Pt sent to CT and labs drawn. INR 2.25, creat 1.4. CT neg for hemorrhage. Neurology evaluated pt via tele- stroke. question of possible TIA vs Seizure. Pt to be admitted with MRI Brain with and without contrast, MRA head and MRA neck to be done in am. EEG was also recommended by Dr Vaughan. Hospitalist accepted admission and pt will be transferred to floor. Stable currently. - Lab Data Result diagrams: 02/10/17 10:16 02/10/17 10:16 Lab Results 02/09/17 02/09/17 02/09/17 Range/Units 19:23 19:23 19:23 WBC 5.1 (4.5-11.0) T/MM3 RBC 4.78 (4.00-5.20) M/MM3 Hgb 15.4 (12-16) GM/DL Hct 46.3 H (36-46) % MCV 96.9 (80-100) UM3 MCH 32.2 (26-34) UUG MCHC 33.3 (31-37) GM/DL RDW Std Deviation 51.4 H (36.9-50.2) FL Plt Count 169 (130-400) T/MM3 MPV 10.9 (9.4-12.4) UM3 Immature Gran % (Auto) 0.4 (0.0-0.5) % Neut % (Auto) 64.1 (33-66) % Lymph % (Auto) 25.7 (23-45) % [place] % (Auto) 7.8 (0-9.0) % Eos % (Auto) 1.6 (0-4) % Baso % (Auto) 0.4 (0-2) % Neut # (Auto) 3.3 (1.8-7.7) T/MM3 Lymph # (Auto) 1.3 (1-4.8) T/MM3 [place] # (Auto) 0.4 (0-0.8) T/MM3 Eos # (Auto) 0.1 (0-0.5) T/MM3 Baso # (Auto) 0.0 (0-0.2) T/MM3 Abs Immat Gran (auto) 0.02 (0.00-0.03) T/MM3 INR 2.25 H (0.99-1.21) APTT 36.5 H (24-36) SEC Turbidity < 20 (0-20) Sodium 139 (134-144) MEQ/L Potassium 4.5 (3.6-5) MEQ/L Chloride 102 (98-107) MEQ/L Carbon Dioxide 26 (22-30) MEQ/L Anion Gap 11 (5-15) MEQ/L BUN 30.0 H (7-17) MG/DL Creatinine 1.4 H (0.7-1.2) MG/DL GFR Calculation 36 BUN/Creatinine Ratio 21 (6-26) RATIO Glucose 173 H (65-110) MG/DL Calculated Osmolality 278 (261-280) MOSM/KG Calcium 9.5 (8.4-10.2) MG/DL Total Bilirubin 0.80 (0.20-1.30) MG/DL Icterus Index < 2 (0-7) AST 22 (14-36) U/L ALT 30 (9-52) U/L Alkaline Phosphatase 82 (38-126) U/L Total Protein 7.1 (6.3-8.2) G/DL Albumin 4.1 (3.5-5.0) G/DL Globulin 3.0 (2.4-3.6) G/DL Albumin/Globulin Ratio 1.4 (1.1-2.2) RATIO Specimen Hemolysis < 15 (0-25) Ur Collection Type Urine Color (YELLOW) Urine Clarity Urine pH (5.0-8.0) Ur Specific [place] (1.015-1.025) Urine Protein (NEGATIVE) Urine Glucose (UA) (NEGATIVE) Urine Ketones (NEGATIVE) Urine Occult Blood (NEGATIVE) Urine Nitrate (NEGATIVE) Urine Bilirubin (NEGATIVE) Urine Urobilinogen (NORMAL) EU/DL Ur Leukocyte Esterase (NEGATIVE) Urinalysis Comment Urine Opiates Screen ng/mL Ur Oxycodone Screen ng/mL Urine Methadone Screen ng/mL Ur Propoxyphene Screen ng/mL Ur Barbiturates Screen ng/mL U Tricyclic Antidepress ng/mL Ur Phencyclidine Scrn ng/mL Ur Amphetamines Screen ng/mL U Methamphetamines Scrn ng/mL U Benzodiazepines Scrn ng/mL Urine Cocaine Screen ng/mL U Cannabinoids Screen ng/mL Alcohol, Quantitative <10 (<10) MG/DL 02/09/17 02/09/17 Range/Units 20:54 20:54 WBC (4.5-11.0) T/MM3 RBC (4.00-5.20) M/MM3 Hgb (12-16) GM/DL Hct (36-46) % MCV (80-100) UM3 MCH (26-34) UUG MCHC (31-37) GM/DL RDW Std Deviation (36.9-50.2) FL Plt Count (130-400) T/MM3 MPV (9.4-12.4) UM3 Immature Gran % (Auto) (0.0-0.5) % Neut % (Auto) (33-66) % Lymph % (Auto) (23-45) % [place] % (Auto) (0-9.0) % Eos % (Auto) (0-4) % Baso % (Auto) (0-2) % Neut # (Auto) (1.8-7.7) T/MM3 Lymph # (Auto) (1-4.8) T/MM3 [place] # (Auto) (0-0.8) T/MM3 Eos # (Auto) (0-0.5) T/MM3 Baso # (Auto) (0-0.2) T/MM3 Abs Immat Gran (auto) (0.00-0.03) T/MM3 INR (0.99-1.21) APTT (24-36) SEC Turbidity (0-20) Sodium (134-144) MEQ/L Potassium (3.6-5) MEQ/L Chloride (98-107) MEQ/L Carbon Dioxide (22-30) MEQ/L Anion Gap (5-15) MEQ/L BUN (7-17) MG/DL Creatinine (0.7-1.2) MG/DL GFR Calculation BUN/Creatinine Ratio (6-26) RATIO Glucose (65-110) MG/DL Calculated Osmolality (261-280) MOSM/KG Calcium (8.4-10.2) MG/DL Total Bilirubin (0.20-1.30) MG/DL Icterus Index (0-7) AST (14-36) U/L ALT (9-52) U/L Alkaline Phosphatase (38-126) U/L Total Protein (6.3-8.2) G/DL Albumin (3.5-5.0) G/DL Globulin (2.4-3.6) G/DL Albumin/Globulin Ratio (1.1-2.2) RATIO Specimen Hemolysis (0-25) Ur Collection Type Urine, clean catch Urine Color Yellow (YELLOW) Urine Clarity Clear Urine pH 6.0 (5.0-8.0) Ur Specific [place] 1.010 L (1.015-1.025) Urine Protein Negative (NEGATIVE) Urine Glucose (UA) Negative (NEGATIVE) Urine Ketones Negative (NEGATIVE) Urine Occult Blood Negative (NEGATIVE) Urine Nitrate Negative (NEGATIVE) Urine Bilirubin Negative (NEGATIVE) Urine Urobilinogen 0.2 (NORMAL) EU/DL Ur Leukocyte Esterase Negative (NEGATIVE) Urinalysis Comment Microscopic not ind. Urine Opiates Screen Negative ng/mL Ur Oxycodone Screen Negative ng/mL Urine Methadone Screen Negative ng/mL Ur Propoxyphene Screen Negative ng/mL Ur Barbiturates Screen Negative ng/mL U Tricyclic Antidepress Negative ng/mL Ur Phencyclidine Scrn Negative ng/mL Ur Amphetamines Screen Negative ng/mL U Methamphetamines Scrn Negative ng/mL U Benzodiazepines Scrn Negative ng/mL Urine Cocaine Screen Negative ng/mL U Cannabinoids Screen Negative ng/mL Alcohol, Quantitative (<10) MG/DL Disposition Clinical Impression: rule out stroke Disposition: 02 To [facility] Condition: Improved Time of Disposition: 16:40 - Seen By: physician
[2017-02-09 23:12] VITALS: BMI 31.7
[2017-02-10] MEDS ORDERED: NITROGLYCERIN 0.4 MG SUBLINGUAL TABLET SL PRN (00:18)
[2017-02-10] MEDS ORDERED: HYDROCODONE/APAP 5mg/325mg TABLET PO PRN (00:18)
[2017-02-10] MEDS ORDERED: ACETAMINOPHEN 160mg/5ml ORAL LIQUID PO PRN (00:18)
[2017-02-10] MEDS ORDERED: LABETALOL 20mg/4ml INJECTION IVP PRN (00:18)
--- NOTE | 2017-02-10 01:18 | History & Physical Report ---
<Rey Renteria Nica - Last Filed: 02/10/17 01:14> History of Present Illness Date: 02/10/17 Chief complaint: right facial weakness HPI: This is a 86 y/o female in her normal state of health. This evening she was trying to buckle her seat belt and the family member noted that she was having a hard time getting it fastened. The patient had a glassy stare to her face and had right sided facial droop. These symptoms lasted only minutes and the patient is brought to the ED where her examination is normal. The patient does have a hx of atrial fibrillation and is adequatly anticoagulated at this time. CT head was unreamkarkable for an acute process. AT this time tele neuro was cntacted who r/c a local admission with neuro workup to be started. Review of Systems Review of systems: no headache, no change in vision, no neck pain, no chest pain, no short of breath, no cough, no fever, chills or sweats, no abdomen pain, no nausea or vomiting, no change in bm, no recent changes in medications. the patient was recently hospitalized and had significants orthostasis identified. currently no focal neuro complaints but not above the changes that were present earlier in the eventing. [facility] Patient Stated Medical History Cataracts Yes Cardiac Arrhythmia Yes: afib Hypertension Yes: change with position changes. Bronchitis Yes Substance Use Disorder No Clinic Medical History Acute bronchitis (Acute Medical) Cardiac pacemaker (Acute Medical) Dysuria (Acute Medical) Edema (Acute Medical) Heart failure (Acute Medical) Hypertension (Acute Medical) On intermediate card tender drug therapy (Acute Medical) Orthostatic hypotension (Acute Medical) Surgical History: permament pacemaker, cataracts bilaterally, t and a Family History: non contributory at this patient's age - Social History Smoking status: Never smoker second hand exposure: No Substance use type: does not use Alcohol intake frequency: does not drink Housing: assisted living facility Household members: none Current occupational status: retired Current occupational exposures/hazards: No Does patient use chewing tobacco?: No Current residence: Assisted Living Medications Home Medications Medication Instructions Recorded Confirmed Type Levothyroxine Sodium 88 mcg PO ACB #0 10/16/14 02/09/17 History Cholecalciferol [Vit. D-3] 1,000 unit PO DAILY #0 01/10/16 02/09/17 History Magnesium Hydroxide [Milk of 15 - 30 ml PO DAILY PRN #0 01/10/16 02/09/17 History Magnesia] Nitroglycerin 0.4 mg SL Q5MIN3 PRN #0 01/10/16 02/09/17 History Warfarin Sodium [Coumadin] 3 mg PO 1700 #0 01/10/16 02/09/17 History Furosemide [Lasix] 10 mg PO DAILY 12/06/16 02/09/17 History Docusate Sodium [Colace] 100 mg PO DAILY 02/09/17 02/09/17 History Duloxetine [Cymbalta] 30 mg PO HS 02/09/17 02/09/17 History Metoprolol Tartrate [Lopressor] 50 mg PO BID 02/09/17 02/09/17 History Polyethylene Glycol 3350 [Miralax] 17 gm PO DAILY PRN 02/09/17 02/09/17 History Allergies Allergy/AdvReac Type Severity Reaction Status Date / Time lisinopril AdvReac Mild Verified 02/09/17 19:20 Exam Vital Signs: Temperature 97.8 F 02/09/17 22:35 Pulse Rate 86 02/09/17 22:35 Respiratory Rate 22 02/09/17 22:35 Blood Pressure 178/100 H 02/09/17 22:35 Pulse Oximetry 96 02/09/17 22:35 Height/Weight/BMI: Height 1.73 m Weight 94.6 kg Body Mass Index 31.7 Comments: well develped wll nourished female alert and oriented x in minimal distress - Constitutional Present: mild distress, well nourished, well developed, average body habitus, cooperative - Routine HEENT Exam Head: Present: normocephalic, atraumatic Eye: Present: EOMI, PERRL, conjunctivae pink. Absent: scleral injection ENT: Present: mucous membranes moist - Routine Neck Exam Present: supple, full ROM. Absent: JVD - Routine Respiratory Exam Present: decreased breath sounds, CTA bilaterally - Routine Cardiovascular Exam Present: irregular rhythm - Routine Abdominal Exam Present: soft, normoactive bowel sounds, non distended, non tender - Routine Extremities Exam Present: no edema, full ROM - Routine Back/Spine/Pelvis Exam Back/Spine: Present: full ROM - Routine Skin Exam Present: intact - Routine Neurological Exam Present: alert, oriented X3, CN II-XII intact, normal reflexes, moving all extremities, normal tone, vision grossly intact, hearing grossly intact, normal speech. Absent: motor deficit, pronator drift, altered mental status, hemineglect, fasciculations, facial asymmetry, tremors, asterixis - Routine Psychiatric Exam Present: normal affect, normal thought process Results - Labs CBC & Chem 7: 02/09/17 19:23 02/09/17 19:23 - ABG Interpretation Additional comments: CT head withou acute process Assessment and Plan (1) Facial weakness Current visit: Yes Status: Acute 02/10/17 01:22 the patients symptoms have resolved at this time. obviously either TIA or seizure. teleneuro r/c neuro workup but cannot exclude seizure. tele, echo, mri and mra head and neck. patent patient with PPM inplace. posssible to interrogate to further address any arrhythmia that could have ppt event. (2) Atrial fibrillation Current visit: Yes Status: Acute 02/10/17 01:23 patietn with atrial fib. on coumadin and b mary. s/p ablation. monitor on tele. consider interrogation of pacemaker. inr therapeutic (3) CKD (chronic kidney disease) stage 3, GFR 30-59 ml/min Current visit: Yes Status: Acute 02/10/17 01:24 to be aware of. repeat labs in the am to futher determine if change DVT Prophylaxis: SCD's Resuscitation Status: Full Code Hospital Course Summary Disclaimer: The visit summary below is not to be considered part of the above Progress Note. <Edilberto Bailey - Last Filed: 02/10/17 14:08> History of Present Illness Date: 02/10/17 [facility] Patient Stated Medical History Cataracts Yes Cardiac Arrhythmia Yes: afib Hypertension Yes: change with position changes. Bronchitis Yes Substance Use Disorder No Clinic Medical History Acute bronchitis (Acute Medical) Cardiac pacemaker (Acute Medical) Dysuria (Acute Medical) Edema (Acute Medical) Heart failure (Acute Medical) Hypertension (Acute Medical) On intermediate card tender drug therapy (Acute Medical) Orthostatic hypotension (Acute Medical) Exam Vital Signs: Temperature 97.6 F 02/10/17 11:47 Pulse Rate 75 02/10/17 11:47 Respiratory Rate 17 02/10/17 11:47 Blood Pressure 151/93 H 02/10/17 11:47 Pulse Oximetry 97 02/10/17 11:47 Height/Weight/BMI: Height 1.73 m Weight 95.6 kg Body Mass Index 31.7 Results - Labs CBC & Chem 7: 02/10/17 10:16 02/10/17 10:16 Assessment and Plan (1) Facial weakness Current visit: Yes Status: Acute (2) Atrial fibrillation Current visit: Yes Status: Acute (3) CKD (chronic kidney disease) stage 3, GFR 30-59 ml/min Current visit: Yes Status: Acute DVT Prophylaxis: Coumadin Assessment and Plan: Have independently interviewed and examined pt. Chart reviewed. Reviewed above not and concur. CC: Right facial weakness, right hand incoordination HPI: 86 y/o WF with chronic afib anticoagulated with Coumadin present to [facility] ER with right facial weakness and hand incoordination. Has been in typical state of health-was out with daughter eating when she noted acute onset of right facial weakness and significant difficulty buckling her seatbelt. Had a 'glassy stair.' Denies BUENO, visual or hearing changes. No recent illness. No chest pressure, pain, or palpitations. Breathing has been normal-no increased SOA, cough, congestion or pain with breathing. Appetite stable. No ab pain or nausea. No recent diarrhea-stools tend to be slow. Denies urinary symptoms. No f /c. No trauma. Symptoms did resolve-patient reports by the time she came to ED. CT brain showing no acute bleed. INR therapeutic. Placed in OBS for further evaluation and treatment. PMHx: Afib, HTN, Anticoagulation with Coumadin, Hypothyroidism, neuropathy. Hx Pacemaker placement, Hx T&A, Hx Bilateral cataract removal. All: lisinopril. Meds: see mar SHx: No smoke or ETOH. Lives in assisted living. FHx: non contributory-know of no familial diseases ROS: as in HPI. 10 point ROS reviewed with patient and negative. EXAM GEN: [id number] A&O HEENT: NC/AT PERRLA EOMI MMM Neck: supple, midline CV: irregularly irregular Lungs: clear bilaterally, no crackles/wheezes/distress. Breaths comfortably on RA. AB: soft nt/nd +BS EXT: no C/C/E MS: Normal muscle tone and strength bilaterally Neuro: CN II-XII intact. No focal motor deficits Psych: awake alert appropriate. Thoughts linear. Converses well. Skin: warm and dry Assessment Right facial weakness - resolved; suspect TIA Chronic atrial fibrillation, rate controlled. Anticoagulated Chronic anticoagulation with Coumadin secondary to AFIB. HTN Hypothyroidism Neuropathy Plan PT/OT for evaluation due to TIA. ECHO. Carotid dopplers. Monitor neurological status. Continue home medications. Monitor INR due to Coumadin use. No recurrence of symptoms. No new neurological changes. INR therapeutic at 2.25. Vitals stable. Patient did well with therapy-no deficits noted. Echo without thromboembolic source. Doppler pending. Likely discharge this afternoon if continues to do well. Hospital Course Summary Disclaimer: The visit summary below is not to be considered part of the above Progress Note. Hospital Course: 02/09/17 OBS Assessment Right facial weakness - resolved; suspect TIA Chronic atrial fibrillation, rate controlled. Anticoagulated Chronic anticoagulation with Coumadin secondary to AFIB. HTN Hypothyroidism Neuropathy Plan OBS due to concern for TIA. Tele. Neurological checks to assess for return of symptoms. Continue coumadin, monitor INR. Echocardiogram and carotid dopplers secondary to TIA. PT/OT evaluation to assess functional status. Continue home medications. 02/10/17 No recurrence of symptoms. No new neurological changes. INR therapeutic at 2.25. Vitals stable. Patient did well with therapy-no deficits noted. Echo without thromboembolic source. Doppler pending. Likely discharge this afternoon if continues to do well.
[2017-02-10] MEDS ORDERED: ACETAMINOPHEN 325 MG TABLET PO PRN (03:49)
[2017-02-10] MEDS ORDERED: LEVOTHYROXINE 88 MCG TABLET PO SCH (06:30)
[2017-02-10] MEDS: NS 1,000 ML IV SCH ×2 (06:43→15:55)
--- NOTE | 2017-02-10 08:02 | CT Scan Report ---
Indication: possible stroke PROCEDURE: CT head/brain wo con: Encounter: Initial Comparison: June 03, 2015 Technique: Axial CT images through the head were performed without contrast. Iterative Reconstruction dose reducing technique was utilized. FINDINGS: The ventricles are of normal size, shape, and contour for the patient's age. There are scattered areas of low attenuation in the white matter which most likely represent changes from chronic microvascular ischemia. The brainstem, cerebellum, and cerebral hemispheres otherwise have a normal morphology and CT attenuation. There is no evidence of midline displacement. No hemorrhage, signs of acute territorial stroke, mass effect, mass lesions, or edema is evident. The visualized portions of the skull base, midface, and calvarium demonstrate no abnormality. The paranasal sinuses are well aerated and free of significant disease. The tympanic and mastoid cavities appear normal. IMPRESSION: No acute intracranial abnormality or hemorrhage. There is a preliminary report by [facility]. .
[2017-02-10] MEDS ORDERED: DOCUSATE SODIUM 100 MG CAPSULE PO SCH (09:00)
[2017-02-10] MEDS ORDERED: ASPIRIN 325 MG TABLET PO SCH (09:00)
[2017-02-10] MEDS ORDERED: POLYETHYL GLYCOL 3350 17gm PACKET PO PRN (09:00)
--- NOTE | 2017-02-10 09:01 | Echocardiogram ---
DATE OF PROCEDURE February 10, [address] Lou Gayle This is a two-dimensional echo with spectral Doppler, color-flow and M-mode. It was obtained in a patient with TIA. Left atrial dimension is normal. Left ventricle end-diastolic dimension is normal. Left ventricular wall thickness is normal. LV systolic function is normal with ejection fraction of about 57%. Right atrium is normal. Right ventricle is normal. Aortic root dimension is normal. Mitral valve annulus is calcified. Mitral valve leaflets are normal with [id number] mitral regurgitation. Aortic valve shows fibrocalcific changes with no stenosis or insufficiency. Tricuspid valve shows moderate tricuspid regurgitation with moderate pulmonary hypertension with estimated pulmonary artery systolic pressure of 48. Pulmonary valve shows mild pulmonary insufficiency. There is no pericardial effusion. Pacemaker is present in the right heart. Grossly there is no intracardiac thrombus or mass. IMPRESSION 1. Normal LV systolic function with ejection fraction of 57%. 2. Permanent pacemaker present in right heart. 3. No intracardiac thrombus or mass. 4. Mitral annulus calcification with [id number] mitral regurgitation. 5. Aortic sclerosis. 6. Moderate tricuspid regurgitation with moderate pulmonary hypertension with estimated pulmonary artery systolic pressure of 48. 7. Mild pulmonary insufficiency. MTDD
--- NOTE | 2017-02-10 15:23 | Ultrasound Report ---
Indication: TIA PROCEDURE: US carotid doppler BI: TECHNIQUE: Grayscale, color and duplex Doppler imaging was performed of the carotid systems bilaterally. Velocities in cm/sec - validated velocity measurements with angiographic measurements, velocity criteria are extrapolated from diameter data as defined by the Society of Radiologists in Ultrasound Consensus Conference Radiology 2003; 229;340-346. RIGHT: PSV ICA 58 EDV ICA 15.9 PSV CCA 60.4 EDV CCA 13.4 SVR 0.9 PSV ECA 87.2 ICA Diameter reduction 0% (<0.8)% LEFT: PSV ICA 57 EDV ICA 13.3 PSV CCA 62.3 EDV CCA 12 SVR 0.9 PSV ECA 84.6 ICA Diameter reduction 0% (<0.8)% The right vertebral artery is patent with cephalic flow. The left vertebral artery is patent with cephalic flow. No significant atherosclerotic plaque. IMPRESSION: No hemodynamically significant carotid stenosis. .
--- NOTE | 2017-02-10 15:47 | Discharge Summary ---
Discharge Information Date of admission: 02/09/17 22:06 Anticipated date of discharge: 02/10/17 Attending Physician: Dr Bailey Primary care physician: Luisa Thornton DO Consults: PT/OT - Discharge Diagnosis (1) Facial weakness Status: Acute (2) Atrial fibrillation Status: Acute (3) CKD (chronic kidney disease) stage 3, GFR 30-59 ml/min Status: Acute Discharge Diagnosis: Discharge diagnosis Right facial weakness - resolved; suspect TIA Associated conditions and complications Chronic atrial fibrillation, rate controlled. Anticoagulated Chronic anticoagulation with Coumadin secondary to AFIB. HTN Stage III CKD Hypothyroidism Neuropathy - Procedures Procedures: Date of Exam: 02/10/17 Type of Exam: US echo doppler complete IMPRESSION 1. Normal LV systolic function with ejection fraction of 57%. 2. Permanent pacemaker present in right heart. 3. No intracardiac thrombus or mass. 4. Mitral annulus calcification with [id number] mitral regurgitation. 5. Aortic sclerosis. 6. Moderate tricuspid regurgitation with moderate pulmonary hypertension with estimated pulmonary artery systolic pressure of 48. 7. Mild pulmonary insufficiency. - Laboratory Labs: Admit Lab 02/09/17 19:23 WBC 5.1 Hgb 15.4 Hct 46.3 H MCV 96.9 Plt Count 169 Neut % (Auto) 64.1 Lymph % (Auto) 25.7 Admit Lab 02/09/17 19:23 Sodium 139 Potassium 4.5 Chloride 102 Carbon Dioxide 26 Anion Gap 11 BUN 30.0 H Creatinine 1.4 H GFR Calculation 36 Glucose 173 H Calculated Osmolality 278 Total Bilirubin 0.80 AST 22 ALT 30 Alkaline Phosphatase 82 Laboratory Tests 02/09/17 02/10/17 19:23 10:16 INR 2.25 H 2.25 H 02/10/17 10:16 02/10/17 10:16 - Radiology Radiology: Date of Exam: 02/09/17 PROCEDURE: CT head/brain wo con FINDINGS: The ventricles are of normal size, shape, and contour for the patient' s age. There are scattered areas of low attenuation in the white matter which most likely represent changes from chronic microvascular ischemia. The brainstem, cerebellum, and cerebral hemispheres otherwise have a normal morphology and CT attenuation. There is no evidence of midline displacement. No hemorrhage, signs of acute territorial stroke, mass effect, mass lesions, or edema is evident. The visualized portions of the skull base, midface, and calvarium demonstrate no abnormality. The paranasal sinuses are well aerated and free of significant disease. The tympanic and mastoid cavities appear normal. IMPRESSION: No acute intracranial abnormality or hemorrhage. Date of Exam: 02/10/17 PROCEDURE: US carotid doppler BI IMPRESSION: No hemodynamically significant carotid stenosis. History of Present Illness HPI: This is a 86 y/o female in her normal state of health. This evening she was trying to buckle her seat belt and the family member noted that she was having a hard time getting it fastened. The patient had a glassy stare to her face and had right sided facial droop. These symptoms lasted only minutes and the patient is brought to the ED where her examination is normal. The patient does have a hx of atrial fibrillation and is adequately anticoagulated at this time. CT head was unremarkable for an acute process. AT this time tele neuro was contacted who r/c a local admission with neuro workup to be started. For complete details of the H&P refer to that document. Objective Vital signs: Temperature 97.6 F 02/10/17 11:47 Pulse Rate 75 02/10/17 11:47 Respiratory Rate 17 02/10/17 11:47 Blood Pressure 151/93 H 02/10/17 11:47 Pulse Oximetry 97 02/10/17 11:47 Height/Weight/BMI: Height 1.73 m Weight 95.6 kg Body Mass Index 31.7 Hospital Course This is a general summary of the patient's hospital course. For more details refer to the complete medical record. Hospital course: 02/09/17 OBS Assessment Right facial weakness - resolved; suspect TIA Chronic atrial fibrillation, rate controlled. Anticoagulated Chronic anticoagulation with Coumadin secondary to AFIB. HTN Hypothyroidism Neuropathy Plan OBS due to concern for TIA. Tele. Neurological checks to assess for return of symptoms. Continue Coumadin, monitor INR. Echocardiogram and carotid dopplers secondary to TIA. PT/OT evaluation to assess functional status. Continue home medications. 02/10/17 No recurrence of symptoms. No new neurological changes. INR therapeutic at 2.25. Vitals stable. Patient did well with therapy-no deficits noted. Echo without thromboembolic source. Doppler showing no evidence of rate limiting stenosis. Discussed with patient and her daughter about adding ASA 81mg dialy. Feel risks of bleeding outweigh potential benefits at this time. Will discharge to home. Continue chronic medications. F/U with Dr Thornton in 1 week for reevaluation. See orders for details. Time spent with patient: discharge greater than 30 minutes DVT Prophylaxis: Coumadin Discharge Plan - Med Rec/Dispo Referrals/Follow Up: Luisa Thornton DO [Family Provider] - [place] Instructions: Transient Ischemic Attack (GEN) Prescriptions: Continue Warfarin Sodium [Coumadin] 3 mg PO 1700 #0 Nitroglycerin 0.4 mg SL Q5MIN3 PRN #0 PRN Reason: CHEST TIGHTNESS Magnesium Hydroxide [Milk of Magnesia] 15 - 30 ml PO DAILY PRN #0 PRN Reason: CONSTIPATION Furosemide [Lasix] 10 mg PO DAILY Polyethylene Glycol 3350 [Miralax] 17 gm PO DAILY PRN PRN Reason: Constipation Duloxetine [Cymbalta] 30 mg PO HS Metoprolol Tartrate [Lopressor] 50 mg PO BID Levothyroxine Sodium 88 mcg PO ACB #0 Cholecalciferol [Vit. D-3] 1,000 unit PO DAILY #0 Diclofenac [Voltaren] 1 applic TOP TID #1 tube Hydrocodone/APAP 5/325 [[place] 5/325] 1 tab PO Q6HPRN PRN #10 tab PRN Reason: Pain Docusate Sodium [Colace] 100 mg PO DAILY Discharge Instructions/Outpatient Orders: Final Provider Discharge Instructions Location: Determined By Patient - Disposition 01 Discharged Home, Self-Care
[2017-02-10 16:09] VITALS: BP 140/78; PULSE 82; RESP 16; TEMP 97; O2SAT 96
[2017-02-10] MEDS ORDERED: WARFARIN 3 MG TABLET PO SCH (17:00)
[2017-02-10] MEDS ORDERED: DULOXETINE 30 MG CAPSULE PO SCH (21:00)
== END 2017-02-10 16:31 | disposition home or self-care (01) ==
LOC: MED 18:59 → ED 18:59 → MED 22:27
PROVIDERS: ADMIT Emergency Medicine; ATTEND Internal Medicine